=== PATIENT | male | born 1970 | race Caucasian/White ===

== ENCOUNTER 2018-07-09 13:21 | Emergency (ER) | payer SELFPAY ==
[2018-07-09 13:34] VITALS: BP 131/84; PULSE 65; RESP 16; TEMP 36.9; O2SAT 100
--- NOTE | 2018-07-09 13:59 | W.ED.GENAD ---
Discharge Plan Disposition Patient Disposition: HOME Condition: Improving Discharge Details Chief Complaint: Abd Prob Clinical Impression: Early satiety, Chronic epigastric pain, Abdominal bloating Primary Care Provider: None,None ED Provider: Eda Salmeron Home Meds and New Rx's Prescriptions: New famotidine [Pepcid] 20 mg tablet 20 mg PO BID 14 Days Qty: 28 RF: 0 Continued echinacea 380 mg Capsule 1 cap PO DAILY RF: 0 Discharge Instructions Instructions: Peptic Ulcer (ED), Gastritis (ED), Abdominal Pain (ED) Additional Instructions: Drink alcohol in moderation. You were given instructions for gastritis and peptic ulcer disease. You may not have these conditions but based on your symptoms if they continue, it may be beneficial to have an endoscopy for further evaluation of this. Foods that may lead to or exacerbate heartburn or GERD are spicy foods, chocolate, peppermint, and alcohol. Chronic use of NSAIDs such as ibuprofen or aleve can increase your risk of ulcers. Follow up with your primary care doctor in 1 week for re-evaluation and for referral to general surgery or gastroenterology for evaluation for possible endoscopy. Return immediately to the emergency department with any worsening or new concerning symptoms. Referrals: Becky Napier MD [ [facility] STAFF PHYSICIAN] - Discharge Data Discharge Physician: Eda Salmeron Medical Decision Making 47-year-old male who presents with early satiety, intermittent abdominal bloating and epigastric discomfort for the past year, worse with an episode of sweating last night. Vitals within normal limits. Patient appears nontoxic and in no acute distress. Normal ENT exam. Lungs clear to auscultation. Abdomen soft and nontender. Differential diagnosis includes PUD, gastritis, pancreatitis, cholecystitis, GERD. Will place an IV, bolus IV fluids, labs, CT abdomen and pelvis, and a dose of Pepcid and GI cocktail and will reassess. 1510 --labs and imaging reviewed and unremarkable. EKG notes a rate of 59 and sinus with no acute ST findings. Patient states he feels better after meds given here. Patient is requesting to go home. He states he is returning to [place] soon and would rather follow-up with his primary care doctor and if needed for referral to surgery or GI there. He was given a prescription for Pepcid, instructed to watch intake of foods and liquids that may exacerbate heartburn or peptic ulcer disease, and given referral for general surgery here if he changes his mind. He was sent home with copies of his results from today. He was instructed to return here immediately with any worsening or new concerning symptoms. Medical Records Medical records reviewed: Yes I reviewed the patient's medical records. Lab Data Lab results reviewed: Yes I reviewed the patient's lab results. Laboratory Tests Range/Units 07/09/18 07/09/18 14:05 14:05 WBC (4.4-10.8) k/cumm 5.81 RBC (4.50-6.00) m/cumm 4.98 Hgb (13.5-17.5) g/dL 15.2 Hct (40.0-50.0) % 45.2 MCV (80-95) fL 90.8 MCH (27.0-33.0) pg 30.5 MCHC (32.0-36.0) g/dL 33.6 RDW (11.8-14.1) % 13.3 Plt Count (130-400) x1000/uL 278 MPV (8.0-11.0) fL 9.4 Immature Gran % 0.0 Neutrophils % 64.5 Lymphocytes % 28.1 Monocytes % 6.0 Eosinophils % 0.9 Basophils % 0.5 Absolute Neutrophils (1.2-6.7) k/cumm 3.75 Absolute Lymphocytes (1.2-3.4) k/cumm 1.63 Absolute Monocytes (0.11-0.7) k/cumm 0.35 Absolute Eosinophils (0.0-0.7) k/cumm 0.05 Absolute Basophils (0.0-0.2) k/cumm 0.03 Sodium (136-145) mmol/L 140 Potassium (3.5-5.1) mmol/L 4.7 Chloride (98-107) mmol/L 103 Carbon Dioxide (21.0-32.0) mmol/L 30.4 Anion Gap (3-11) mmol/L 6.6 BUN (7-18) mg/dL 13 Creatinine (0.70-1.30) mg/dL 0.82 Estimated GFR/1.73 m2 (mL/min/1.73m2) >= 60.00 Glucose (70-100) mg/dL 102 H Calcium (8.5-10.1) mg/dL 9.1 Magnesium (1.8-2.4) mg/dL 2.0 Total Bilirubin (0.2-1.0) mg/dL 1.0 AST (15-37) U/L 16 ALT (12-78) U/L 35 Alkaline Phosphatase (46-116) U/L 91 Troponin I (0.00-0.06) ng/mL < 0.02 Total Protein (6.4-8.2) g/dL 7.7 Albumin (3.4-5.0) g/dL 4.1 Lipase (73-393) U/L 157 ECG Data Attestation: I personally reviewed and interpreted this ECG (s) as follows: Interpretation: rate of 59, sinus, no acute ST elevation or depression. QTc 406. QRS 95. HPI General Mode of arrival: ambulatory. Date/Time Provider Initiated Documentation: 07/09/18 13:25. Limitations to Documentation: no limitations. Information obtained by: patient. HPI Narrative: Patient is a 47-year-old male who presents with early abdominal fullness after eating, abdominal bloating, and occasional epigastric pain for the past year. He states he has had to make his food portions smaller due to this fullness. Patient states he had an episode of sweating with nausea and epigastric discomfort last night. Patient states he lives in [place] and is on vacation here until next week but plans to move here soon. Patient states he has intermittent epigastric bloating and discomfort over the past year, but this became worse last night with his episode of sweating. He states he has had intermittent formed and loose brown stools over the past few years. He states he takes Motrin 2-3 times weekly for chronic headaches. He does admit to occasional shortness of breath when he feels like he ate too much and feels full. He denies fever, weight loss, chest pain, vomiting, urinary symptoms. He does state he drinks 1-2 beers and occasionally 4 beers approximately 4-5 times weekly. Patient states he is mainly here because he is concerned that he might have a cancer causing his symptoms. Related Data Home Medications Medication Instructions Recorded Confirmed echinacea 1 cap PO DAILY 07/09/18 07/09/18 famotidine [Pepcid] 20 mg PO BID 14 Days #28 tab 07/09/18 Previous Rx's Medication Instructions Recorded famotidine [Pepcid] 20 mg PO BID 14 Days #28 tab 07/09/18 Allergies Allergy/AdvReac Type Severity Reaction Status Date / Time No Known Allergies Allergy Unverified 07/09/18 13:37 General Stated Complaint: Abd Prob JIM: 3 Review of Systems Review of Systems All systems reviewed & are unremarkable except as noted in HPI and below Constitutional Reports as per HPI, Denies chills, Denies fever(s) and Reports headache(s) Eyes Denies blurry vision ENT Denies dizziness, Reports headache(s), Denies sore throat and Denies throat swelling Cardiovascular Denies chest pain and Denies dyspnea Respiratory Denies cough and Denies dyspnea Gastrointestinal Denies abdominal pain, Denies diarrhea and Denies vomiting Genitourinary Denies hematuria and Denies dysuria Musculoskeletal Denies back pain and Denies numbness Integumentary/Breasts Denies lesions and Denies rash Neurologic Denies dizziness, Reports headache(s), Denies focal weakness and Denies numbness Allergic/Immunologic Denies throat swelling PFSH Medical History Tinnitus (Acute) Surgical History No significant past surgical history (Acute) Social History Smoking and Tabacco status: Never alcohol intake: current alcohol intake frequency: 0-2 drinks per day substance use type: marijuana Exam Const General: cooperative, healthy appearing and no acute distress HENMT Head: normal to inspection Ears: hearing grossly normal bilaterally and external ears normal General nose exam: external nose normal Face and sinus: normal facial exam Mouth: oral mucosae normal Throat: posterior oropharynx normal Eyes General: appearance normal, both eyes and all related structures EOM: EOM intact bilaterally Neck Neck: normal visual inspection and No submandibular swelling Lymphatic: no lymphadenopathy noted Chest Chest: normal inspection of the chest and no tenderness Resp Effort & Inspection: normal respiratory effort and able to speak in complete sentences Auscultation: clear to auscultation bilaterally Cardio Rate: regular rate Rhythm: regular rhythm GI Inspection: normal to inspection Palpation: soft, not firm, not rigid and nontender Auscultation: normal bowel sounds Male General Exam: Yes normal external exam Back/Spine/Pelvis Thoracic/Lumbar Spine: thoracic and lumbar spine normal to inspection Pelvis: no pain with anterior-posterior compression Skin General skin exam: no rashes or lesions noted Neuro General: alert, awake and oriented x3 Cognition: normal cognition Speech: speech normal Motor: muscle tone normal throughout Sensory Exam: no sensory deficits noted Extrem General: normal to inspection, full ROM, normal capillary refill, no calf tenderness bilaterally and no edema Psych Appearance: grossly normal Mental Status: mental status grossly normal Speech and Movement: speech and movement normal Affect: normal affect Course Vital Signs Temperature 98.4 F 07/09/18 13:34 Pulse 65 07/09/18 13:34 Respiratory Rate 16 07/09/18 13:34 Blood Pressure 131/84 07/09/18 13:34 Pulse Oximetry 100 07/09/18 13:34 Temperature 98.4 F 07/09/18 13:34 Temperature Source Temporal Artery Scan 07/09/18 13:34 Pulse 65 07/09/18 13:34 Respiratory Rate 16 07/09/18 13:34 Respiratory Effort Non-Labored 07/09/18 13:34 Blood Pressure 131/84 07/09/18 13:34 Blood Pressure Position Sitting 07/09/18 13:34 Pulse Oximetry 100 07/09/18 13:34 Oxygen Delivery Method Room Air 07/09/18 13:34 Oxygen Flow Rate 0 07/09/18 13:34 Pain Level 2 07/09/18 13:34
[2018-07-09 14:09] LABS: Absolute Basophil Count 0.03 k/cumm (0.0-0.2); Absolute Eosinophil Count 0.05 k/cumm (0.0-0.7); Absolute Lymphocyte Count 1.63 k/cumm (1.2-3.4); Absolute Monocyte Count 0.35 k/cumm (0.11-0.7); Absolute Neutrophil Count 3.75 k/cumm (1.2-6.7); Basophils % 0.5; Eosinophils % 0.9; HCT 45.2 % (40.0-50.0); HGB 15.2 g/dL (13.5-17.5); Lymphocytes % 28.1; Mean Corp. HGB Concentration 33.6 g/dL (32.0-36.0); Mean Corpuscular Hemoglobin 30.5 pg (27.0-33.0); Mean Corpuscular Volume 90.8 fL (80-95); Mean Platelet Volume 9.4 fL (8.0-11.0); Neutrophils % 64.5; Platelet Count 278 x1000/uL (130-400); RBC 4.98 m/cumm (4.50-6.00); RBC Distribution Width 13.3 % (11.8-14.1); White Blood Cell Count 5.81 k/cumm (4.4-10.8)
[2018-07-09] MEDS: FAMOTIDINE 20 MG/50 ML BAG 200 MG IVPB (14:12)
[2018-07-09] MEDS: Normal Saline Flush 10 ML SYR IVP (14:13)
[2018-07-09 14:27] LABS: ALT 35 U/L (12-78); AST 16 U/L (15-37); Albumin 4.1 g/dL (3.4-5.0); Alkaline Phosphatase 91 U/L (46-116); Anion Gap 6.6 mmol/L (3-11); BUN 13 mg/dL (7-18); CO2 30.4 mmol/L (21.0-32.0); CREATININE 0.82 mg/dL (0.70-1.30); Calcium 9.1 mg/dL (8.5-10.1); Chloride 103 mmol/L (98-107); Glucose 102 mg/dL (70-100); Lipase 157 U/L (73-393); Potassium 4.7 mmol/L (3.5-5.1); Sodium 140 mmol/L (136-145); Total Protein 7.7 g/dL (6.4-8.2)
[2018-07-09 14:28] LABS: Troponin I < 0.02 ng/mL (0.00-0.06)
[2018-07-09] MEDS: Omnipaque 350 MG/ML 100 ML BTL IJ (14:57)
--- NOTE | 2018-07-09 15:03 | DI.CT_ITS ---
SYMPTOMS/DIAGNOSIS: EPIGASTRIC ABDOMINAL PAIN, EARLY SATIETY, NAUSEA, ? PANCREATITIS, CHOLECYSTITIS, MASS CT SCAN OF THE ABDOMEN AND PELVIS: CT scan of the abdomen and pelvis was performed following the uneventful administration of intravenous contrast material. No priors for comparison. The lung bases are clear. The liver is normal in size. There are a few tiny hypodensities seen in the liver. They are too small for further characterization. They may represent small cysts or hemangioma. The gallbladder is negative. There is no biliary ductal dilatation. The portal, superior mesenteric and splenic veins are patent. The pancreas, spleen and adrenal glands are unremarkable. The kidneys show normal and symmetric enhancement. There is a tiny hypodensity in the right kidney that is too small for further characterization, but likely reflects a small cyst. No obstruction is identified. The urinary bladder is intact. The reproductive organs are unremarkable. The abdominal aorta is of normal caliber. No significant abdominal or pelvic adenopathy, ascites or pneumoperitoneum is seen. The bowel shows no evidence of obstruction or inflammation. There is a normal appendix present. Degenerative changes are seen in the spine. IMPRESSION: No evidence of an acute abdomen. The findings were discussed with the Emergency Department on the date of the examination.
[2018-07-09 15:24] VITALS: BP 131/84; PULSE 65; RESP 16; TEMP 36.9; O2SAT 100
== END 2018-07-09 16:32 | disposition home or self-care (01) ==
PROVIDERS: Emergency Provider Physician Assistant
DX: R68.81 Early satiety (principal); G89.29 Other chronic pain; R10.13 Epigastric pain; R14.0 Abdominal distension (gaseous)
CPT/HCPCS: 36415; 80053; 83690; 93005; 96365; 99285; 74177; 83735; 84484; 85025; 93010; 99284; J3490

== ENCOUNTER 2019-10-24 01:27 | Outpatient (CLI) | payer MEDICAID, SELFPAY ==
[2019-10-24 08:12] LABS: Hemoglobin A1C 5.5 % (3.8-5.6)
[2019-10-24 09:21] LABS: Anion Gap 6.4 mmol/L (3-11); BUN 16 mg/dL (7-18); CO2 30.6 mmol/L (21.0-32.0); Calcium 9.1 mg/dL (8.5-10.1); Calculated LDL 120 mg/dL (<100); Chloride 103 mmol/L (98-107); Cholesterol 196 mg/dL (<200); Glucose 98 mg/dL (74-106); HDL Cholesterol 58 mg/dL (40-60); Potassium 4.6 mmol/L (3.5-5.1); Sodium 140 mmol/L (136-145); Triglyceride 90 mg/dL (<150)
== END 2019-10-24 01:47 ==
PROVIDERS: PCP Nurse Practitioner Family; Visit Provider Nurse Practitioner Family
DX: E78.5 Hyperlipidemia, unspecified (principal)
CPT/HCPCS: 36415; 80048; 80061; 83036

== ENCOUNTER 2019-11-12 00:39 | Outpatient (CLI) | payer MEDICAID, SELFPAY ==
--- NOTE | 2019-11-12 08:40 | DI.MRI_ITS ---
EXAM: MR LUMBAR SPINE WO CLINICAL HISTORY: assess for worsening herniation,BACK PAIN. TECHNIQUE: Multiplanar multisequence MRI was performed. COMPARISON: No exams were available for comparison FINDINGS: MR examination of lumbosacral spine was performed according to the usual protocol. There is no significant bony signal abnormality the lumbar region. The conus medullaris appears inta ct. There is signal loss in intervertebral discs at L3-4, L4-5, and L5-S1 consistent with disc degenerati on. There is an incompletely visualized probable disc herniation at the T11-T12 level centrally and right paracentral. MR of the lower thoracic region may be obtained for further evaluation if clinically i ndicated. No significant findings at T12-L1, L1-2, or L2-3, with intact discs, and unremarkable appearance of c entral spinal canal and neural foramina. At L3-4, there is a small to moderate-sized central/left paracentral disc herniation. No gross neura l impingement. Unremarkable appearance of the neural foramina and spinal canal. At L4-5, there is normal appearance of the intervertebral disc, neural foramina, and spinal canal. At L5-S1, there is mild bilateral neural foraminal narrowing. No central canal spinal stenosis. The re is a moderate disc bulge without evidence of a focal disc herniation. IMPRESSION: Small to moderate-sized central/left paracentral disc herniation at L3-4, no gross neural impingement . Probable disc herniation at T11-T12, incompletely visualized, lower T-spine MRI may be obtained for f urther evaluation if clinically indicated. DATA REPOSITORY:
== END 2019-11-12 00:59 ==
PROVIDERS: PCP Nurse Practitioner Family; Visit Provider Nurse Practitioner Family
DX: M54.5 Low back pain (principal); M51.27 Other intervertebral disc displacement, lumbosacral region; M54.6 Pain in thoracic spine; M51.24 Other intervertebral disc displacement, thoracic region
CPT/HCPCS: 72148

== ENCOUNTER 2019-12-04 09:11 | Day surgery (SDC) | payer MEDICAID, SELFPAY ==
[2019-12-04 09:34] VITALS: BP 104/66; PULSE 60; RESP 16; TEMP 36.2; O2SAT 99
[2019-12-04] MEDS: Lactated Ringers 1,000 ML 80 ML IV (10:02)
--- NOTE | 2019-12-04 11:29 | W.COLOREPORT ---
Date of service: 12/05/19 Time of Service: 15:06 Colonoscopy Report Date of procedure: 12/04/19 Pre-op diagnosis general: CRC screen Post-op diagnosis procedure note: same Procedure: CE Surgeon: Nettie Escobar Anesthesia proc note operative: MAC Estimated blood loss (mL): 0 Pathology: none sent Complications: None Disposition: same day Prep: Miralax/Dulcolax Retraction Time: 10mins Procedure Description: After informed consent was obtained the patient was taken to the procedure room and placed in a left decubitous position. Monitors were applied and a time out was done. The patients name, date of , procedure, allergies to medications and metal in their body was reviewed. The patient was then sedated. Once sedated and comfortable a rectal exam was done. External exam was normal. Internal exam revealed a normal sphincter tone and no palpable masses. The prostate nl. The scope was then introduced and retrofelexed. No internal hemorrhoids were identified. The scope was then advanced to the cecum w/out difficulty. The TI and appendiceal orifice were identified. The prep was good. The scope was then slowly retracted over 10 minutes back into the rectum. . There are no AVMs or polyps identified. He has minor sigmoid diverticuli?a few small diverticula without any signs of active bleeding or infection. These are confined to the sigmoid colon. The scope was removed and the patient was woken up and taken back to Same day surgery in stable condition. The patient tolerated the procedure well and there were no immediate complications. Follow up: The patient should follow up in 10 years unless they develop changes in bowel habits or other new gastrointestinal complaints.
--- NOTE | 2019-12-04 11:36 | W.PM.DSUDISC ---
Discharge Plan Disposition Patient Disposition: HOME Condition: Good Discharge Details Reason For Visit: colon scope Attending Provider: Nettie Escobar Primary Care Provider: Racquel Madrigal Home Meds and New Rx's Prescriptions: Continued tamsulosin 0.4 mg capsule 0.4 mg PO DAILY Qty: 30 RF: 0 Discontinued polyethylene glycol 3350 17 gram/dose powder 238 g PO ONCE Qty: 238 RF: 0 bisacodyl [Dulcolax (bisacodyl)] 5 mg tablet,delayed release (DR/EC) 5 mg PO ONCE Qty: 4 RF: 0 Discharge Instructions Additional Instructions: Findings: Scattered diverticula. Avoid constipation and straining to go to the bathroom. Follow a high-fiber diet Follow up: Repeat in 10 years time Please call if you develop: fevers >101.5 Nausea or Vomiting Abdominal pain that is not transient DAY SURGERY UNIT POST COLONOSCOPY INSTRUCTIONS 1. Because there will be medication in your system for the next 24 hours, you may feel a little sleepy. Your coordination will be affected. Therefore: a. Do not drive or operate dangerous equipment for 24 hours. b. Do not drink alcohol beverages for 24 hours (not even beer). c. Plan to go home and rest for the day. 2. Generally there are no restrictions on your activity after a day or so has gone by, but you may feel a bit fatigued for a few days. 3 After you arrive home you may have a light meal and return to a normal diet as you can tolerate it without feeling sick to your stomach. 4. After surgery, you may feel pain or discomfort. This should be only transient, but if it persists please contact your doctor. 5. If there are any questions regarding the findings of your procedure, please feel free to contact your doctor. 6. If you are unable to contact your doctor with a problem, contact the hospital at [phone]. 7. Continue all your regular medications unless directed otherwise. I understand the above instructions and have no questions. Signature of Patient or Responsible Adult Escort Date/Time Name of Responsible Adult Escort Signature of Nurse Date/Time High Fiber Diet What is Dietary Fiber? All fiber comes from plants, bushes, renée or trees. Of course, the ones that we eat provide us with fruits, vegetables and grains. There are many different types of fiber but the three that are most important to the health of the body are: Insoluble Fiber This fiber does not dissolve in water, nor is it fermented by the bacteria residing in the colon. Rather, it retains water and in so doing, helps to promote a larger, bulkier and more regular bowel activity. This, in turn, may be important in preventing disorder such as diverticulosis and hemorrhoids, and in sweeping out certain toxins and cancer causing carcinogens. Sources of insoluble fiber are: ? whole grain wheat and other whole grains ? corn bran, including popcorn, unflavored and unsweetened ? nuts and seeds ? potatoes and the skins from most fruits from trees such as apples, bananas and avocados ? many green vegetables such as green beans, zucchini, celery and cauliflower ? some fruit plants such as tomatoes and kiwi Soluble Fiber These fibers are fermented or used by the colon bacteria as a food source or nourishment. When these good bacteria grow and thrive, many health benefits occur in both the colon and the body. Soluble fiber is present in some degree in most edible plant foods, but the ones with the most soluble fiber include: ? legumes such as peas and most beans, including soybeans ? oats, rye and barley ? many fruits such as berries, plums, apples bananas and pears ? certain vegetables such as broccoli and carrots ? most root vegetables ? psyllium husk supplement products Prebiotic Soluble Fiber These are relatively newly discovered soluble plant fibers. The technical name for this fiber is inulin or fructan. When these soluble fibers are fermented by the good colon bacteria, some further significant health benefits have been shown to occur by research in many medical centers. These soluble prebiotic fibers occur in significant amounts in: ? asparagus ? yams ? onions ? garlic ? bananas ? leeks ? agave ? chicory and other root vegetables such as [place] artichokes ? wheat, rye and barley (smaller amounts) Benefits of a High Fiber Diet The health benefits of a high fiber diet, consumed on a regular basis and reaching recommended amounts (below), are now fairly well-defined. There are some additional benefits in the early research stage with the prebiotic soluble fibers. What is now known regarding a high fiber diet include: Bowel Regularity A high fiber diet promotes regularity with a softer, bulkier and regular stool pattern. This decreases the chance of hemorrhoids, diverticulosis and perhaps colon cancer. Cholesterol and Reduced Triglycerides The soluble fibers are the ones that will reduce cholesterol levels when used on a regular basis. Psyllium husk and prebiotic soluble fiber will also reduce cholesterol. They may also reduce the incidence of coronary heart disease. Oats, flax seeds and legumes or beans are the recommended fibers. Colon Polyps and Cancer It is still not certain if a high fiber diet helps prevent colon cancer. Considerable research suggests that this may occur. Certainly it makes sense to increase regularity and so speed the movement of cancer causing carcinogens through the bowel. In addition, reducing a heavy meat diet reduces the bile flow from the liver in a favorable way. This, too, reduces the amount of carcinogens that reach and are manufactured in the colon. Finally, a high fiber diet, including prebiotic soluble fiber, increases the integrity and health of the wall of the colon. The risk of cancer may be reduced. Colon Wall Integrity A high fiber diet changes the bacterial makeup of the colon toward a more favorable balance. For instance, it is known that those people with obesity, diabetes type 2 and inflammatory bowel disease have a predominance of bad bacteria in the colon. This, in turn, may render the bowel wall weak and allow bacteria and, indeed, even toxins to seep through. A high fiber diet with a modest reduction in animal and meat products may return the bacterial makeup to a more positive balance. This, in particular, has been seen when the soluble fiber prebiotics are added to the diet. Blood Sugar Soluble fiber such as in legumes (beans), oats and in prebiotic fibers slows the absorption of blood sugar and so helps regulate the sugar in the blood. Insoluble fiber on a regular basis is associated with reduced risk of type 2 diabetes. Weight Loss High fiber diets are more filling and give a sense of fullness sooner than an animal and meat based diet does. In addition, the soluble prebiotic fibers have been shown to turn off the hunger hormones produced in the wall of the gut and to increase the hormones that give a sense of fullness. Those hormones are made in the wall of the gut. New medical research has shown that the bacterial makeup in the colon in overweight people is abnormal to the extent that they manufacture and absorb almost twice the number of calories through the colon wall as do normals. Prebiotic fibers (below) will help change this hormonal balancein a favorable way. Bacteria and the Function of the Colon The colon finishes the digestive process. Hopefully, the waste products move through in a nice regular manner. Insoluble fibers help this process by retaining water and so producing a bulkier, softer stool, which is easy to pass. The additional role of the colon is to provide a home for an enormous number of micro-organisms, mostly bacteria. Recent research has shown that there are over 1,000 species of bacteria with a total bacterial count ten times the number of cells in the body. These bacteria play a major role in keeping the colon wall itself healthy. In addition, these good bacteria produce a very strong immune system for the body. They significantly increase calcium absorption and bone density. They provide other documented benefits. It is the soluble fibers in the diet that are so effective in stimulating the growth of good colon bacteria. How Much is Enough? The amount of fiber in food is measured in grams. National nutritional authorities recommend the following amounts of dietary fiber daily. Under Age 50 Over Age 50 Men 38 grams 30 grams Women 25 grams 21 grams For a week or so, it is best to tally the amount of fiber you are consuming. Boxed and packaged foods will have the amount of fiber per serving on the nutrition label. Which Fibers and Which Foods are Best? As noted, healthy fiber is only found in plants. The three major categories are whole grains, fruits and vegetables. Whole Grains Wheat, oats, barley, wild or brown rice, amaranth, buckwheat, bulgur, corn, millet, quinoa, rye, sorghum, teff and triticals. By far, wheat, oats and wild or brown rice are most common. Always buy whole grain products. White bread, baked goods and rolls almost always are made from wheat flour. Wheat flour is white because most of the fiber, vitamins and other nutrients have been removed. Try not buy enriched grains. What this means is that simple white flour has had vitamins added to it by the admin prog coord. The word, enriched, implies a good and healthy product. On the contrary, enriched means that most of the fiber has been removed and a few vitamins added. Fruits Fruits come from trees such as apple and pear or from bushes or renée. You should eat a wide variety of fruits, preferably with every meal. In many cases, the skin of a fruit such as apple will contain much of the insoluble fiber while the pulp contains most of the soluble fiber. To the extent possible, buy organic fruits as these will have little or no pesticides. Always wash fruit. Vegetables Eat a wide variety of vegetables. They should be a mainstay of lunch and dinners. Frozen vegetables retain as much nutrition and fiber as fresh vegetables. As with fruit, try to buy organic to reduce any residual pesticide ingestion. Wash fresh vegetables thoroughly. Cruciferous vegetables such as broccoli, [place] sprouts and cauliflower contain certain chemicals such as sulforaphane. This substance has very strong anti-cancer properties and should be eaten frequently. Legumes, Beans, Peas and Soybeans These vegetables have plenty of soluble fiber and should be part of a varied vegetable intake. Beans, in particular, contain a certain type of fiber that may lead to harmless gas or bloating. Nuts and Seeds These are rich sources of fiber and are a good substitute for sweets such as candies and baked sweet goods. While nuts and seeds are rich in fiber, they also contain vegetable fat and so can and do add calories. Read the Labels As noted, fresh and frozen foods are usually better. They have good nutrition and few, if any, chemicals added to them. When buying packaged foods and, in particular grains, look for three things: ? The first word on the label should be whole, such as whole wheat or whole grain. ? Check out the calories and the amount of fiber in a serving. ? How many and what other additives or chemicals are added. Fewer is always better. Do you know what each additive does? Some are added not for the benefit of the cow buyer but rather for manufacturers. These could and do include sugar, artificial flavor, chemicals to prevent oxidation and spoilage, emulsifiers to blend the product. You have to be a store detective. Fiber Facts, Nuggets and Pearls ? For breakfast you can easily get the day started well by using a high fiber, whole grain cereal. Check the labels. Add fruit such as blueberries and bananas. If you are an egg eater, use whole wheat or grain toast. Adding wheat germ gives you a good fiber kick. ? Always use whole grain or wheat with rolls and sandwiches. Does your fast food store not have them? Perhaps you look elsewhere. Eating an occasional black cunningham or veggie burger provides variety. ? Snacks should consist of fruit and/or nuts. While nuts are loaded with fiber, they are an energy rich food, meaning they have a lot of calories in a small packet. ? Fruit juices should contain pulp. Clear juices such as clear orange, pear or apple juice contain little fiber and have a lot of fructose. Prune juice is usually high in fiber. ? Homemade soups ? adding fresh or frozen vegetables to a chicken or vegetable stock is a good way to start homemade soup. ? Salads ? adding cooked and then chilled vegetables provide great flavoring to almost any salad. Remember, a ferrer salad has lots of cooked corn in it. Small slices of apples or oranges and nuts such as chopped walnuts or sliced almonds always adds taste, variety and fiber to almost any salad. ? Fruit ? Try to eat fruit of some type with almost every meal. ? Rethink how you place the various foods on your dinner plate. Reducing the portions of the meat or animal food portion to the side with equal or more portions of vegetables, legumes and fruits portion always allows for more fiber. There was never anything magic about making the meat or animal food portion the main part of the dinner plate. Eating from smaller plates can, over time, trick your mind and residential habit of using a dinner plate. Again, there is nothing magic in an 11, 12, or 13 inch dinner plate. Fiber Supplements There are a variety of fiber supplements available on the food or pharmacy shelves. Psyllium This soluble plant fiber has been used in [place] for over 2,000 years. It is a soluble fiber with mucilage in it. This acts to retain a lot of water and also is fermented by colon bacteria. When 7 grams a day are used, it does lower cholesterol. Metamucil in various forms is psyllium. Methyl Cellulose All the cellulose products come from finely ground wood chips which are then treated in a variety of ways such as boiling in acids. Methyl cellulose is an insoluble fiber which does dissolve in water. It is also an emulsifier, meaning it blends oils and water. Citrucel is methyl cellulose (MC). MC may not be appropriate for Crohn?s disease or ulcerative colitis as several medical studies have shown that certain emulsifiers dissolve the mucous lining of the colon in animals prone to Crohn?s disease. This then allows bacteria to invade the underlying tissue. Inulin Inulin is a soluble prebiotic fiber found in many foods and which are fermented mostly in the left side of the colon. It is available in a supplement as generic inulin and in Fiber Choice. Oligofructose FOS These are also prebiotic fibers. They are fermented very quickly in the right side of the colon. Prebiotin This product is a combination of oligofructose, which feeds the bacteria in the right side of the colon and inulin, which does the same in the left side of the colon. There seems to be a benefit for this particular formula based on medical research. Prebiotic Soluble Fiber These may be the healthiest of all the soluble fibers. They grow in many plants and have had a great deal of research done on them in the last 10-15 years. These fibers are found in asparagus, yams and other root vegetables such as chicory, garlic, onion, leeks and in smaller amounts in wheat. This research has shown the following: ? Increase in good and decrease in bad colon bacteria ? Increase calcium absorption and enhanced bone mass ? Enhanced immune system ? Appetite and weight control by changing the hormone appetite signals to the brain ? May decrease colon cancer incidence ? Reduce or correct a leaky colon Eating a wide variety of plant food up to the recommended amount will likely give you enough prebiotic fiber. Supplements such as Prebiotin can be added to the diet. Short Chain Fatty Acids (SCFA) Some rather remarkable research findings have shown that one of the benefits of ingesting a lot of soluble fiber, in particular the prebiotic ones, results in larger amounts of SCFAs in the colon. These SCFAs are made by the good bacteria in the colon such as Bifidobacter and Lactobacillus. These small molecules have been shown to do the following: ? Enhance the health and integrity of the colon wall ? Provide nourishment for the cells that actually line the colon ? Increases the acidity of the colon which is a very real health benefit ? Stabilize blood sugar for diabetics ? Reduce blood cholesterol and triglyceride ? Significantly enhance immunity ? May be a benefit for Crohn?s disease and ulcerative colitis patients Fiber and Gas Everyone has intestinal gas and that is a good thing. It means that bacteria, hopefully the good ones, are thriving. The normal amount of flatus passed each day depends on sex and what is eaten. The normal number of flatus is 10-20 times a day. When the bacteria that make intestinal gases are growing, it also means that other good bacteria are using the same fibers to grow and produce multiple health benefits, including the production of healthy short-chain fatty acids. These substances are produced quietly in the colon and produce many health-related outcomes. Soluble fiber should always be used in a gradual manner. If too much is consumed at any one time, then excess, but harmless, intestinal gas can occur. People with irritable bowel syndrome are particularly prone to bloating and mild cramping. In this instance, soluble fiber in the diet or supplement should be used in small doses and increased gradually. Finally, prebiotic fibers tend to cause the production of short-chain fatty acids which acidify the colon. This, in turn, reduces or stops the growth of bacteria that make the smelly hydrogen sulfide gases that produce noxious flatus. People who consume many vegetables with prebiotics or take a prebiotic fiber supplement often have non-odoriferous flatus. Fiber and Irritable Bowel Syndrome Irritable bowel syndrome (IBS) is one of the most common disorders of the lower digestive tract. The symptoms of IBS can be quite varied. They can be a mix of several symptoms such as constipation, diarrhea, crampy abdominal discomfort, bloating and gas. An attack of IBS can be triggered by emotional tension and anxiety, poor dietary habits and certain medications. It is now known that infections in the intestine can lead to long-term IBS symptoms. Increased amounts of fiber in the diet can help relieve the symptoms of irritable bowel syndrome by producing soft, bulky stools. This helps to normalize the time it takes for the stool to pass through the colon. Recent medical research with newer techniques has shown some surprising and dramatic findings for IBS patients. Specifically, there is a very significant and abnormal shift of bacteria from those that provide health benefits to those bad bacteria that we really do not want in the gut. The technical name for this bad group of bacteria is called Firmicutes. Along with this abnormal bacterial collection, there is a smoldering low-grade inflammation in the gut wall that may contribute to symptoms. The goal for IBS patients should be to gradually increase the soluble dietary fibers in the diet so as to promote the growth of good bacteria and so suppress the bad ones along with the associated inflammation. IBS patients need to be careful of the amount of soluble fiber they consume. The reason for this is that, while the good colon bacteria thrive on these fibers and produce health benefits, other gas-forming bacteria may generate excessive but harmless gas and subsequent bloating. Thus, soluble plant fibers or a dietary prebiotic supplement should be taken in small initial doses and then gradually increased to tolerance. Fiber and Colon Polyps/Cancer Colon cancer is a major health problem. This disease is most common in Western cultures. It is not seen very often in rural cultures where the diet is mostly plant based. Usually, colon cancer starts out as a colon polyp, a benign mushroom-shaped growth. In time it grows, and in some people it becomes cancerous. Colon cancer is usually always curable if polyps are removed when found or if surgery is performed at an early stage. It is now known that people can inherit the risk of developing colon cancer, but diet is important, too. As noted, there is a very low rate of colon cancer in residents of countries where grains are unprocessed and retain their fiber. It seems that in the [place] world, cancer-containing agents (carcinogens) remain in contact with the colon wall for a longer time and in higher concentrations. So, a large bulky stool may act to dilute these carcinogens by moving them through the bowel more quickly. Less carcinogenic exposure to the colon may mean fewer colon polyps and less cancer. A very current review of the entire world?s literature on the effect of fiber on colon polyps and cancer prevention has shown rather clearly that for every 10 grams of fiber added to the diet, there is a 10% reduction in incidence of colon cancer. So the recommended 30 gram fiber diet would result in a 30% less chance of getting these tumors. There are also substances produced in the colon by the good bacteria that seem to retard certain pre-cancer factors from developing. They are called short-chain fatty acids (SCFA). See above for description of SCFAs. A high fiber diet increases these substances. So, the combination of dietary fiber and the production of short-chain fatty acids have a clear health benefit. Fiber and Diverticulosis Prolonged, vigorous contraction of the colon over a long period of time may result in diverticulosis. This increased pressure causes small and, eventually, larger ballooning pockets to form. These pockets by themselves cause no problem. However, sometimes they become infected (diverticulitis) or even break open (perforate) causing infection or inflammation within the abdomen (peritonitis). A high fiber diet increases the bulk in the stool and thereby reduces the pressure within the colon. By so doing, the formation of pockets may be reduced or possibly even stopped. In the past, many physicians were fearful that seeds as in tomatoes, nuts or berries were harmful and could get inside these pockets and rattle around, causing damage. We now know that this has never been the case and that these foods contain lots of fiber and are actually beneficial for diverticulosis patients. Certain bulking agents such as psyllium are traditional types of bulk producing supplements. Psyllium is a soluble fiber. Combining it with insoluble fiber as in wheat bran or corn bran (no gluten) can enhance this bulking effect even more. A product containing a prebiotic, psyllium and wheat bran is probably a very good combination for bowel regularity. Prebiotin Regularity/Diverticulosis is one such product. Inflammatory Bowel Disease (IBD) IBD means Crohn?s Disease (CD) or Ulcerative Colitis (UC). CD is an inflammation of the lower small bowel and/or the colon. Bacteria actually invade and cause inflammation in the entire wall of the intestine. UC, on the other hand, is an inflammation just of the lining of the colon. It usually starts in the rectum and left colon and may spread to the entire colon from there. It is now known that in both CD and UC that the bacterial make up is abnormal. This means that there are significantly more of the bad bacteria present than the good ones. These abnormal bacteria are called Firmicutes. Fiber and Crohn?s Disease There is now some information in the medical literature on what type of diet may be harmful and what may help Crohn?s Disease. A reduction in red meat is likely helpful. So is reducing the fat in the diet, including vegetable oils. More importantly, people who had low fiber ingestion in the diet had a greater chance of getting CD. So, a gradual increase in the amount of fiber is likely helpful in hopefully preventing CD. This should always be done in conjunction with the physician. It should be done gradually and should include soluble fibers which fertilize the best colon bacteria. The good bacteria grow and push out the bad ones. These good bacteria provide short chain fatty acids, which can help heal the bowel wall. Prebiotics such as Prebiotin are available. Fiber and Ulcerative Colitis We still do not have strong evidence in the medical literature on what is the best diet for UC. Eating plenty of soluble fiber, including prebiotic fibers will nourish the best colon bacteria. It is hoped that this will result in a decrease in the bad or Firmicutes bacteria. It is well-known that when the good bacteria proliferate that they produce lots of acid substances called short chain fatty acids (SCFA). The SCFAs actually nourish the cells of the colon wall, the very ones that become inflamed in UC. In addition, when the colon contents become acid, the smelly sulfide gases are not produced and the flatus becomes less noxious and may even have no smell at all. This may have a beneficial effect on the inflammation. Prebiotics such as Prebiotin are the best type of soluble fiber. A Taking a Fiber Supplement Dietary fiber is a plant-based nutrient that's necessary for the healthy functioning of your digestive system. In addition to helping your bowels stay regular, it's also useful for maintaining optimum cholesterol and blood sugar levels as well as a healthy weight. Although it's technically a carbohydrate, it's not the kind that can be broken down into digestible sugars by the body. Instead, fiber travels through your digestive system while bulking and softening your stool?making it easier to pass. It also helps absorb excess blood sugars and cholesterols. The [place] [employer] recommends 30 grams (g) of fiber a day for men, and 25g a day for women. Fiber is found in fruits, vegetables, legumes, and whole grains, and is an important part of the diet. But because many people find it difficult to eat the recommended quantity of 25 to 38 g per day, fiber supplementation can be extremely helpful to ease the symptoms of a variety of digestive discomforts like diarrhea and constipation. Today, many fiber supplements are found on the market containing one of three active ingredients: psyllium, methylcellulose, and polycarbophil Health Benefits If you have diarrhea, supplementing with fiber can bulk up the stool and reduce frequent urges to evacuate the bowel. If you have constipation, fiber supplements can soften your stool and speed up its movement through the colon. To understand how fiber helps relieve symptoms of both diarrhea and constipation, it's important to differentiate between soluble fiber and insoluble fiber. Soluble fiber forms a gel in your colon by absorbing water and retaining it in your stool, which makes bowel movements softer and easier to pass. Insoluble fiber bulks stool up, which also helps it move through your intestines more easily. Thus, fiber can also help you avoid hemorrhoids and anal fissures that can develop when straining to pass a bowel movement. Additionally, supplementing with fiber can be part of a treatment plan for conditions such as irritable bowel syndrome (IBS), various types of inflammatory bowel disease (IBD) like Crohn's disease and ulcerative colitis, as well as diverticulosis. Fiber increases satiety, or fullness, and is thus helpful for those looking to lose weight or maintain a healthy weight. Sufficient fiber intake has also been shown to decrease the risk of certain cancers, heart disease, and diabetes. There is also evidence that enough fiber, when combined with a diet rich in Vitamin A, has a protective effect against food allergies. Possible Side Effects The potential side effects of fiber supplementation include: ? Gas and gas pain ? Abdominal bloating ? Lowered blood sugar ? Diarrhea or constipation (if taken in excess) ? Weight loss ? Lessened effectiveness of medications and vitamins (if taken at the same time as fiber) Because of the way fiber supplements bulk up in the intestinal tract and absorb surrounding materials, they can interfere with the body's ability to assimilate medications, vitamins, and nutrients. For that reason, it's important to consume fiber supplements at least one hour after, or two hours before, taking medications and important vitamins. Dosage and Preparation Fiber supplements often come in the form of powders meant to be mixed with water or another liquid. They also are available in capsule form, or as additives to foods like crackers, cookies, cereals, and bars. Dosage will vary based on the product and your desired effects. If you are healthy, it's generally recommended to start with a low dose of fiber and build up until you've reached optimum total daily fiber intake?roughly 25g for women and 38g for men?which should also include your dietary sources of fiber What to Look For When shopping for fiber, look closely at the ingredients to discover which form of fiber is used in each commercial brand. Also, if you're avoiding added sugar, salt, flavorings, or dyes, check the label for these common additives. If you're just starting with a fiber supplement, use a low dose and drink plenty of water when you take the supplement and throughout the day. If you are not used to eating a high fiber diet/taking a supplement, start with about half of the recommended dose. Always remember to take fiber with 8oz of water. Continue at this dose for about 2-3 weeks, and then slowly increase up to the full dose daily. Fiber is a natural product- you can increase the dose to 2-4 times a day as needed to have a formed BM without straining. Increase the dose slowly until you reach either the desired total intake or a specific effect. Psyllium Psyllium is made from the seeds of a plant in the Plantago genus and contains about 70% soluble fiber and 30% insoluble fiber. It helps the stool absorb water and bulks it up, making it easier to pass. It also breaks down in the gut (a process called fermentation) and becomes a food source for the good bacteria that reside there. Psyllium is used for treating constipation, irritable bowel syndrome (IBS), and diverticulosis. In addition, psyllium may lower cholesterol levels and provide some protection from heart disease. On the downside, psyllium may cause intestinal gas and contains a small number of calories (roughly 20 calories per tablespoon). Psyllium is sold under the brand names Metamucil, Fiberall, Hydrocil, Konsyl, Perdiem, and Serutan. Methylcellulose Methylcellulose is a non-allergenic and non-fermentable fiber created from the cell herbert of plants. Instead of being absorbed by the intestinal tract, methylcellulose pulls in water to create a softer stool. Methylcellulose is often used to treat constipation, diverticulosis, IBS, and some causes of diarrhea. Because it does not ferment, it is less likely than psyllium to cause intestinal gas; however, methylcellulose does not feed healthy gut bacteria the way psyllium does. It can be used marine oil terminal superintendent but it should be noted that, because it can interfere with absorption, methylcellulose should be taken apart from any prescribed medications. Methylcellulose is sold under the brand name Citrucel. Polycarbophil Similar to methylcellulose, polycarbophil absorbs water in the intestinal tract and creates a bulkier and softer stool. Because it does not ferment and is not absorbed by the body, polycarbophil is less likely to cause bloating and can, therefore, be comfortably used marine oil terminal superintendent. Polycarbophil may be used to treat constipation, IBS, and diverticulosis, but is not appropriate for people who have difficulty swallowing. Like methylcellulose, it should be taken about two hours apart from medications. Polycarbophil is sold under the brand names Fibercon, Fiber-Lax, Equalactin, and Mitrolan. Other Questions What are the best dietary sources of fiber? Whether or not you choose to supplement with fiber, it's still important to include a variety of high-fiber foods in your diet, such as: ? Fresh fruit (pears, apples, strawberries, bananas) ? Fresh vegetables (broccoli, Brussel sprouts, beets, and carrots) ? Legumes (lentils, split peas, kidney beans, chickpeas, black beans, castillo beans) ? Whole Grains (quinoa, oats, brown rice, millet, barley) ? Other food sources of fiber (popcorn, sweet potatoes, and carrie) What time of day is best? Different manufacturers may have varying recommendations on when and how frequently to take fiber supplements. You may want to divide your daily dose into two or three portions to reduce bloating and gas that could occur when taking a large dose all at once. To avoid malabsorption, it's important to take medications or vitamins either one hour before, or two hours after, taking fiber supplements. If using a powdered form of fiber, be sure to dissolve it well. No matter what kind of fiber supplement you are using, be sure to drink plenty of water, at least 8ox, unless you are on fluid restrictions. Activity:: No lifting over 20 pounds or strenuous activity x24 hours Diet:: small light meals x24 hours Discharge Orders Discharge Orders: Discharge Order (Routine); Ordered 12/04/19 Ordered By: Nettie Escobar
[2019-12-04 11:37] VITALS: BP 84/52; PULSE 55; RESP 16; TEMP 36.4; O2SAT 98
== END 2019-12-04 12:31 | disposition home or self-care (01) ==
PROVIDERS: PCP Nurse Practitioner Family; Visit Provider Surgery
PROC: 0DJD8ZZ Inspection of Lower Intestinal Tract, Via Natural or Artificial Opening Endoscopic (ICD-10-PCS; CPT 45378; principal; 2019-12-04 10:00)
DX: Z12.11 Encounter for screening for malignant neoplasm of colon (principal); K57.30 Diverticulosis of large intestine without perforation or abscess without bleeding
CPT/HCPCS: 45378; J2001

== ENCOUNTER 2020-05-06 13:17 | Emergency (ER) | payer MEDICAID, SELFPAY ==
--- NOTE | 2020-05-06 13:15 | DI.RAD_ITS ---
EXAM: XR HAND RT COMPLETE CLINICAL HISTORY: Fall, Swelling, 5th, 4th, 3rd fingers. TECHNIQUE: 2D digital imaging was performed. COMPARISON: No exams were available for comparison FINDINGS: No evidence of fracture or dislocation. No osseous lesions nor erosions. No radiopaque foreign body seen. IMPRESSION: No fracture evident. DATA REPOSITORY: RADIATION DOSE DELIVERED:
[2020-05-06 13:25] VITALS: BP 129/78; PULSE 65; RESP 20; TEMP 36.4; O2SAT 98
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
== END 2020-05-06 14:19 | disposition home or self-care (01) ==
PROVIDERS: Emergency Provider Registered Nurse Emergency; PCP Nurse Practitioner Family
DX: S63.8X1A Sprain of other part of right wrist and hand, initial encounter (principal); W01.198A Fall on same level from slipping, tripping and stumbling with subsequent striking against other object, initial encounter
CPT/HCPCS: 99283; 73130

== ENCOUNTER 2020-08-09 03:59 | Outpatient (CLI) | payer MEDICAID, SELFPAY ==
[2020-08-09 12:30] LABS: Abs Immature Grans 0.01 10^3/uL (0.0-0.06); Absolute Basophil Count 0.03 10^3/uL (0.0-0.2); Absolute Monocyte Count 0.35 10^3/uL (0.1-0.8); Basophils % 0.6; HCT 45.4 % (40.0-50.0); HGB 15.2 g/dL (13.5-17.5); Immature Grans % 0.2; Lymphocytes % 35.4; MCH 30.7 pg (27.0-33.0); MCHC 33.5 % (32.0-36.0); MCV 91.7 fL (80-95); MPV 9.7 fL (8.0-11.0); Monocytes % 6.9; Neutrophils % 54.9; Nucleated RBC 0 %; Platelet Count 329 10^3/uL (130-400); RBC 4.95 10^6/uL (4.36-5.78); RDW 12.8 % (11.8-14.1); RDW-SD 43.2 fL; WBC 5.09 10^3/uL (4.4-10.8)
[2020-08-09 12:44] LABS: Hemoglobin A1C 5.6 % (<5.7)
[2020-08-09 13:28] LABS: FREE T4 0.81 ng/dL (0.76-1.46)
[2020-08-09 13:40] LABS: Calculated LDL 124 mg/dL (<100); Cholesterol 204 mg/dL (<200); HDL Cholesterol 65 mg/dL (40-60); Triglyceride 76 mg/dL (<150)
[2020-08-10 10:51] LABS: Lyme Ab w Rflx to Lyme Confirm Negative (Negative)
[2020-08-11 20:15] LABS: Anaplasma phagocytophilum Negative (Negative); B. miyamotoi PCR Negative (Negative); Babesia divergens/MO-1 Negative (Negative); Babesia duncani Negative (Negative); Babesia microti Negative (Negative); Ehrlichia chaffeensis Negative (Negative); Ehrlichia ewingii/canis Negative (Negative); Ehrlichia muris eauclairensis Negative (Negative)
[2020-08-12 16:56] LABS: Testosterone, Free 11.7 ng/dL (4.06-15.6); Testosterone, Total 404 ng/dL (240-950)
== END 2020-08-09 04:00 | disposition home or self-care (01) ==
LOC: LOS 03:59
PROVIDERS: PCP Nurse Practitioner Family; Visit Provider Nurse Practitioner Family
DX: E78.5 Hyperlipidemia, unspecified (principal); R53.83 Other fatigue; R39.12 Poor urinary stream
CPT/HCPCS: 36415; 80061; 84402; 84403; 87798; 83036; 84439; 84443; 85025; 86618

== ENCOUNTER 2020-12-24 02:37 | Outpatient (CLI) | payer MEDICAID, SELFPAY ==
[2020-12-24 22:28] LABS: PSA, Screening 0.8 ng/mL (0.0-3.5)
== END 2020-12-24 02:38 | disposition home or self-care (01) ==
LOC: LBO 02:37
PROVIDERS: PCP Nurse Practitioner Family; Visit Provider Nurse Practitioner Gerontology
DX: N40.1 Benign prostatic hyperplasia with lower urinary tract symptoms (principal); Z12.5 Encounter for screening for malignant neoplasm of prostate
CPT/HCPCS: 84153

== ENCOUNTER 2021-01-04 10:19 | Outpatient (CLI) | payer MEDICAID, SELFPAY ==
--- NOTE | 2021-01-04 10:00 | DI.RAD_ITS ---
Exam(s) XR KNEE RT 3V AP,LAT,BERTA EXAM: XR KNEE RT 3V AP,LAT,BERTA CLINICAL HISTORY: right knee pain. TECHNIQUE: 2D digital imaging was performed. COMPARISON: No exams were available for comparison FINDINGS: BONES: No acute fracture is present. No bony destructive lesion is seen. JOINTS: The knee is normally aligned. No joint effusion is seen. The joint spaces are well maintain ed. There is minimal spurring at the articular aspect of the patella. SOFT TISSUE: Normal. IMPRESSION: Minimal degenerative changes. DATA REPOSITORY: RADIATION DOSE DELIVERED:
== END 2021-01-04 10:20 | disposition home or self-care (01) ==
LOC: DIORS 10:19
PROVIDERS: PCP Nurse Practitioner Family; Referring Provider Nurse Practitioner Family; Visit Provider Student in an Organized Health Care Education/Training Program
DX: M25.561 Pain in right knee (principal)
CPT/HCPCS: 73562

== ENCOUNTER 2021-06-21 16:34 | Outpatient (REF) | payer MEDICAID, SELFPAY ==
[2021-06-21 17:52] LABS: BUN 20 mg/dL (7-18); CREATININE 0.8 mg/dL (0.70-1.30)
== END 2021-06-21 16:35 | disposition home or self-care (01) ==
LOC: LBN 16:34
PROVIDERS: PCP Nurse Practitioner Family; Visit Provider Nurse Practitioner Gerontology
DX: N40.1 Benign prostatic hyperplasia with lower urinary tract symptoms (principal); N30.10 Interstitial cystitis (chronic) without hematuria; M54.59 Other low back pain
CPT/HCPCS: 84520; 82565

== ENCOUNTER → 2022-03-17 00:40 | Outpatient (CLI) | payer MEDICAID, SELFPAY ==
--- NOTE | 2022-03-17 07:30 | DI.RAD_ITS ---
Exam(s) XR ELBOW RT COMPLETE EXAM: XR ELBOW RT COMPLETE CLINICAL HISTORY: right elbow pain,m25.521. TECHNIQUE: 2D digital imaging was performed. COMPARISON: No exams were available for comparison FINDINGS: 3 views No evidence of fracture or joint effusion and no swelling of the olecranon bursa. Radial head and ne ck appear unremarkable. Capitellum unremarkable. Epicondyles unremarkable. Bone density is normal. There are no significant osseous lesions. IMPRESSION: No significant osseous findings in the elbow. DATA REPOSITORY: RADIATION DOSE DELIVERED:
== END ==
PROVIDERS: PCP Nurse Practitioner Family; Visit Provider Emergency Medicine
DX: M25.521 Pain in right elbow (principal)
CPT/HCPCS: 73080

== ENCOUNTER 2022-05-05 13:00 | Outpatient (REF) | payer MEDICAID, SELFPAY ==
[2022-05-05 13:03] LABS: Bilirubin Negative (Negative); Blood Negative (Negative); Clarity Sl Cloudy (Clear); Glucose Negative (Negative); Ketones Negative (Negative); Leukocyte Esterase Negative (Negative); Nitrite Negative (Negative); Specific Gravity 1.025 (1.005-1.025); Urobilinogen 0.2 EU/dL (Up TO 0.2); pH 6.5 (5-8)
[2022-05-07 13:35] LABS: Chlamydia Result Negative (Negative); GC Result Negative (Negative)
== END 2022-05-05 13:01 | disposition home or self-care (01) ==
LOC: LBN 13:00
PROVIDERS: PCP Nurse Practitioner Family; Visit Provider Nurse Practitioner Family
DX: N48.89 Other specified disorders of penis; Z11.3 Encounter for screening for infections with a predominantly sexual mode of transmission
CPT/HCPCS: 87491; 87591; 81003

== ENCOUNTER 2022-06-26 02:45 | Outpatient (CLI) | payer MEDICAID, SELFPAY ==
[2022-06-26 16:19] LABS: Anion Gap 7.5 mmol/L (3-11); BUN 12 mg/dL (7-18); CO2 29.5 mmol/L (21.0-32.0); Calcium 9.4 mg/dL (8.5-10.1); Calculated LDL 140 mg/dL (<100); Chloride 103 mmol/L (98-107); Cholesterol 220 mg/dL (<200); Glucose 87 mg/dL (74-106); HDL Cholesterol 73 mg/dL (40-60); Potassium 4.6 mmol/L (3.5-5.1); Sodium 140 mmol/L (136-145); Triglyceride 38 mg/dL (<150)
== END 2022-06-26 02:46 | disposition home or self-care (01) ==
PROVIDERS: PCP Nurse Practitioner Family; Visit Provider Nurse Practitioner Family
DX: E78.5 Hyperlipidemia, unspecified (principal)
CPT/HCPCS: 36415; 80048; 80061

== ENCOUNTER 2022-11-18 14:48 | Emergency (ER) | payer MEDICAID, SELFPAY ==
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
[2022-11-18 14:52] VITALS: BP 109/71; PULSE 65; RESP 18; TEMP 36.7; O2SAT 98
--- NOTE | 2022-11-18 15:15 | DI.RAD_ITS ---
Exam(s) XR CLAVICLE LT EXAM: XR CLAVICLE LT CLINICAL HISTORY: Left clavicular tenderness and AC joint tenderness TECHNIQUE: 2D digital imaging was performed of the left clavicle. Two images were obtained. AP and axial views were obtained. COMPARISON: No exams were available for comparison FINDINGS: BONES: No acute fracture is present. No bony destructive lesion is seen. JOINTS: No dislocation present. There are mild degenerative changes seen at the acromioclavicular makayla int. SOFT TISSUE: Normal. IMPRESSION: No acute fracture or dislocation. DATA REPOSITORY: RADIATION DOSE DELIVERED:
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
[2022-11-18] MEDS: Ibuprofen 600 MG TAB PO (15:45)
[2022-11-18] MEDS: Acetaminophen 500 MG TAB 1000 MG PO (15:46)
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
--- NOTE | 2022-11-18 16:37 | NUR.NOTE ---
Nursing Note: Referral faxed to PCP for AC joint injury, reassessment/within 1 week.
== END 2022-11-18 16:45 | disposition home or self-care (01) ==
PROVIDERS: Emergency Provider Emergency Medicine; PCP Nurse Practitioner Family
DX: S20.212A Contusion of left front wall of thorax, initial encounter (principal); S43.52XA Sprain of left acromioclavicular joint, initial encounter; V18.0XXA Pedal cycle driver injured in noncollision transport accident in nontraffic accident, initial encounter; Y93.55 Activity, bike riding; Y92.828 Other wilderness area as the place of occurrence of the external cause; M54.50 Low back pain, unspecified; G89.29 Other chronic pain; E78.5 Hyperlipidemia, unspecified
CPT/HCPCS: 99284; 71046; 73000

== ENCOUNTER 2022-11-20 05:08 | Emergency (ER) | payer MEDICAID, SELFPAY ==
[2022-11-20 05:11] VITALS: BP 115/74; PULSE 93; RESP 14; TEMP 36.6; O2SAT 98
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
[2022-11-20 05:37] LABS: Bilirubin Negative (Negative); Blood Trace-intact (Negative); Clarity Clear (Clear); Glucose Negative (Negative); Ketones Negative (Negative); Leukocyte Esterase Negative (Negative); Nitrite Negative (Negative); Specific Gravity 1.025 (1.005-1.025); Urobilinogen 0.2 mg/dL (Up to 0.2); pH 5.5 (5-8)
[2022-11-20 05:38] LABS: Abs Immature Grans 0.02 10^3/uL (0.0-0.06); Absolute Basophil Count 0.06 10^3/uL (0.0-0.2); Absolute Eosinophil Count 0.14 10^3/uL (0.0-0.7); Absolute Lymphocyte Count 2.62 10^3/uL (1.2-3.4); Absolute Monocyte Count 0.51 10^3/uL (0.1-0.8); Absolute Neutrophil Count 3.49 10^3/uL (1.2-6.7); Basophils % 0.9; HCT 42.6 % (40.0-50.0); HGB 14.5 g/dL (13.5-17.5); Immature Grans % 0.3; Lymphocytes % 38.3; MCH 30.8 pg (27.0-33.0); MCV 90 fL (80-95); MPV 8.9 fL (8.0-11.0); Monocytes % 7.5; Platelet Count 307 10^3/uL (130-400); RBC 4.71 10^6/uL (4.36-5.78); RDW 12.7 % (11.8-14.1); WBC 6.84 10^3/uL (4.4-10.8)
[2022-11-20] MEDS: Normal Saline 500 ML IV (05:40)
[2022-11-20 05:48] LABS: Bacteria Rare HPF (Negative); C & S Indicated? No; Crystals Negative HPF (Negative); Epithelial Cells Negative HPF (Negative); Mucus Negative (Negative); RBC 0-2 HPF (0-2); WBC Negative HPF (0-5)
[2022-11-20 05:53] LABS: ALT 27 U/L (16-63); AST 12 U/L (15-37); Albumin 3.7 g/dL (3.4-5.0); Alkaline Phosphatase 85 U/L (46-116); Anion Gap 6.5 mmol/L (3-11); BUN 17 mg/dL (7-18); Bilirubin, Total 0.7 mg/dL (0.2-1.0); CO2 30.5 mmol/L (21.0-32.0); Calcium 8.7 mg/dL (8.5-10.1); Chloride 105 mmol/L (98-107); Glucose 109 mg/dL (74-106); Potassium 4.1 mmol/L (3.5-5.1); Sodium 142 mmol/L (136-145); Total Protein 6.9 g/dL (6.4-8.2)
[2022-11-20] MEDS: Omnipaque 350 MG/ML 100 ML BTL IJ (06:04)
[2022-11-20] MEDS: Normal Saline Flush 10 ML SYR IVP (06:05)
[2022-11-20] MEDS: Normal Saline - Diluent 50 ML VIAL IJ (06:05)
[2022-11-20 06:27] VITALS: BP 124/77; PULSE 52; RESP 14; O2SAT 99
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
[2022-11-20] MEDS: Ketorolac 15 MG/ML VIAL IVP (07:16)
--- NOTE | 2022-11-20 07:22 | NUR.NOTE ---
Nursing Note: Referral faxed to [facility] Urology for nodular bladder/appt at their discretion.
[2022-11-20 07:24] VITALS: BP 124/77; PULSE 55; RESP 14; O2SAT 99
== END 2022-11-20 07:39 | disposition home or self-care (01) ==
PROVIDERS: Emergency Provider Student in an Organized Health Care Education/Training Program; PCP Nurse Practitioner Family
DX: R10.9 Unspecified abdominal pain (principal); M89.9 Disorder of bone, unspecified; D18.09 Hemangioma of other sites; K57.90 Diverticulosis of intestine, part unspecified, without perforation or abscess without bleeding
CPT/HCPCS: 36415; 80053; 96360; 99285; 74177; 81003; 81015; 85025; 99284; J1885; J3490

== ENCOUNTER 2023-04-12 20:30 | Emergency (ER) | payer MEDICAID, SELFPAY ==
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
[2023-04-12 20:32] VITALS: BP 116/63; PULSE 75; RESP 18; TEMP 37.7; O2SAT 99
--- NOTE | 2023-04-12 20:38 | W.ED.GENAD ---
Discharge Plan Disposition Patient Disposition: Home Condition: Stable Discharge Details Clinical Impression: Internal derangement of right knee Primary Care Provider: Racquel Madrigal ED Provider: Boubacar Steven Home Meds and New Rx's Prescriptions: Continued meclizine 25 mg tablet 25 mg PO DAILY PRN (Reason: motion sickness) Qty: 20 0RF Patient Comments: stated does not take Rx Instructions: may repeat in 8 hours if needed for vertigo valacyclovir 1 gram tablet 1,000 mg PO DAILY PRN (Reason: rash) Qty: 30 0RF Patient Comments: stated does not take Rx Instructions: Take 1 daily for 5 days during an outbreak meclizine 25 mg tablet 25 mg PO TID Qty: 10 0RF Discharge Instructions Instructions: Knee Sprain (ED) Additional Instructions: You were seen in the emergency department for your possible ligamentous injury of your right knee or meniscal injury of your right knee. Your x-rays are negative for fracture. Please rest, ice, compress and elevate the knee, use the crutches and toe tap for partial weightbearing on your right leg, please use therapeutic dosing of Tylenol (acetamenophen) & Advil (ibuprofen) in an alternating fashion as follows: Take 1000mg of Tylenol every 6 hours without missing doses- that is 4 times per day. Prison in between the Tylenol dosings, take 400-600mg of Advil also on a 6 hour schedule, that is also 4 times per day. The daily maximum dosing of Tylenol is 4000mg, and the daily maximum dosing of Advil is 2400mg. This is safe to do for weeks. Please note that some common cold medications & prescription pain medications may contain acetamenophen and you need to read OTC drug labels and factor that in to maximum daily dosings. Please call and [facility] orthopedics or your primary care provider for referral tomorrow morning to set up an evaluation for probable MRI. Referrals: [facility] [Provider Group] Racquel Madrigal NP [Primary Care Provider] - Discharge Data Discharge Date/Time-TO BE ENTERED AT DEPARTURE: 04/12/23 21:27 Medical Decision Making This dictation utilizes [id number]-mebp dictation software and may contain unedited grammatical errors. 52 y/o M presents to ED today with a chief complaint of XC ski injury- one leg went one way, the other stayed- felt a pop in his R knee, states a prior ACL tear but sounds like it was partial and non-surgical. Patient is R-foot dominant. Onset and characteristics include onset today, is able to ambulate. Patients' medical history: noncontributory, otherwise healthy. Family and social history: noncontributory. Pertinent exam findings / vital signs include +MacMurray R knee, negative Felipe/anterior drawery, no crepitus, small effusion suprapatellar. Differential / pathologies of concern include ligamentous injury of knee, meniscus tear, tibial plateau fracture. Diagnostic studies of: -XR R Knee - no acute fracture seen. Interventions of: -Hinged knee immobilizer, Crutches, recommend RICE protocol, therapeutic dosing APAP/NSAID, follow w/ orthopaedics. ED Course/Assessment/Plan: 52-year-old male presents with cross-country skiing injury, feels like an old ACL injury and remote past, has Damien positive I did corporate counsel him that he possibly has a meniscus tear and to aggressively ice and elevate the knee while he awaits follow-up with orthopedics, advised him he may need a referral from his primary care for this. I recommended therapeutic dosing Tylenol and ibuprofen as well as partial weightbearing with the crutches of toe tapping as tolerated. Findings not consistent with fracture/NV Compromise. Disposition of Internal Derangement of Right Knee. Patient verbalized understanding of the plan and return to ED criteria and engaged in shared decision making. Medical Records Medical records reviewed: Yes I reviewed the patient's medical records. Imaging Data Radiologic Study: Imaging: X-Ray Radiologist's impression: Exam: XR Right Knee Exam date and time: 04/12/2023 8:53 PM Age: 52 years old Clinical indication: Pain and injury or trauma; Blunt trauma; Right; Injury details: Fall xc skiing, R knee pain TECHNIQUE: Imaging protocol: Radiologic exam of the right knee. Views: 3 views. COMPARISON: CR XR KNEE RT 3V AP,LAT,MOLLY 01/04/2021 10:10 AM FINDINGS: Bones/joints: Joint effusion suspected. No discrete fracture or dislocation Soft tissues: Normal. IMPRESSION: Question joint effusion. No discrete fracture noted Dictated and Authenticated by: Jurgen Chung MD. Ordering:DANIEL Hamlin MD [facility] General Date/Time Provider Initiated Documentation: 04/12/23 20:37. HPI Narrative: 52 year-old male presents to ED today by POV/ambulating with a chief complaint of R knee injury, R-foot dominant, while XC skiing with onset earlier today. Quality described as feels like he tore his ACL, when comparing it to a prior what sounds like grade 2 non-surgical ACL tear in remote history, no radiation to inability to weight-bear, numbness/tingling distally, proximal pain. Severity is described as 6-7/10. Palliating factors include nothing specific attempted. Provoking factors include nothing specific. Events leading up to the incident/Associated Symptoms: Patient states he felt some sort of click or pop during the fall. Patient not anticoagulated. Related Data Home Medications Medication Instructions Recorded Confirmed meclizine 25 mg tablet 25 mg PO DAILY PRN motion sickness 06/24/20 04/12/23 #20 tabs valacyclovir 1 gram tablet 1,000 mg PO DAILY PRN rash #30 tabs 04/27/21 04/12/23 meclizine 25 mg tablet 25 mg PO TID #10 tabs 02/07/23 04/12/23 Previous Rx's Medication Instructions Recorded meclizine 25 mg tablet 25 mg PO DAILY PRN motion sickness 06/24/20 #20 tabs valacyclovir 1 gram tablet 1,000 mg PO DAILY PRN rash #30 tabs 04/27/21 meclizine 25 mg tablet 25 mg PO TID #10 tabs 02/07/23 Allergies Allergy/AdvReac Type Severity Reaction Status Date / Time No Known Allergies Allergy Unverified 04/12/23 20:37 General Stated Complaint: Orthopedic JIM: 4 Review of Systems All systems reviewed & are unremarkable except as noted in HPI and below PFSH All Active Problems (Updated 04/12/23 @ 21:13 by IGOR Green) Internal derangement of right knee (Acute) Right kidney stone (Acute) BERNARDA (obstructive sleep apnea) (Chronic) Hyperlipidemia (Chronic) 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 Maternal Grandmother No problems noted. Paternal Grandfather No problems noted. Paternal Grandmother No problems noted. Social History Smoking/Tobacco Use Status: Never Second Hand Exposure: Yes Smoking risk assessment performed?: Yes Alcohol Intake: current Alcohol Intake frequency: a few times a month Alcohol type: beer and wine Drug use: Current Sobriety Substance use type: marijuana and hallucinogens Caregiver/Support person: No Household members: none Housing: house Communication Needs: Hard of Hearing Do you need help understanding health information?: Rarely Pets and animals: No Sexually active: No Do you think of yourself as: straight/heterosexual Current gender identity: male What is your relationship status?: never How often do you talk on the phone with friends or family?: three or more times per week How often do you get together with friends or relatives?: once per week How often do you attend roman catholic or episcopal services?: decline to answer Do you belong to any clubs or organized social groups?: no Panel score (0-1 are the most socially isolated patients): 1 What type of physical activity do you participate in: none and decline to answer Karina/Tenriism: None Special karina needs: No Seatbelt use: always Helmet use: Yes Helmet use: always Drive intox or ride w/intox waste collection driver: No Do you feel safe at home: Yes Do you feel safe in your relationship?: Yes Exam Narrative Exam Narrative: GENERAL APPEARANCE: Well-nourished, non-toxic, awake and alert, atraumatic, no acute distress. SKIN: Warm, pink, dry, intact, without rashes/lesions/ulcerations. HEAD: Normocephalic, atraumatic, normal hair distribution for gender/age. EYES: Pupils PERRLA, EOMs intact without nystagmus, normal conjunctiva, no exudates on lids/lashes. ENT: Nares patent, no circumoral cyanosis, no facial swelling NECK: Supple, trachea midline, painless cervical ROM. LUNGS/CHEST: Non-labored respirations, normal A/P diameter, symmetrical expansion, no chest wall deformity HEART (CV/PV): No peripheral edema, no JVD. ABDOMEN: Soft, non-distended, no guarding, no tenderness. MSK: Normal ROM, no swelling/deformity to bilateral UEs or LEs, moving all extremities without weakness, no cyanosis, spine midline without tenderness, normal curvature. R LE: Mild joint line tenderness to palpation to the right knee, neurovascularly intact distally, Damien positive, Felipe anterior drawer negative, no significant pain with varus valgus forces applied and no laxity, femur and tibia-fibula stable NEURO: Mental Status AAOx4 - alert to person, place, time, events No facial droop, no forehead involvement. Motor: No focal weakness - strength 5/5 in bilateral UEs and LEs, proximal and distal, symmetric. Sensory: sensation intact to light touch globally. Gait NT. PSYCH: euthymic, cooperative, pleasant, appropriate speech Course 04/12/23 20:37 Crutches .crutches Knee Immobilizer [ED Orthopedic Splint/Devices] .Knee Hinged Brace XR knee RT 3V AP,lat,molly [RAD] Stat Vital Signs Vital signs: Vital Signs Temperature 37.7 C H 04/12/23 20:32 Pulse 75 04/12/23 20:32 Respiratory Rate 18 04/12/23 20:32 Blood Pressure 116/63 04/12/23 20:32 Pulse Oximetry 99 04/12/23 20:32 Temperature 37.7 C H 04/12/23 20:32 Temperature Source Tympanic 04/12/23 20:32 Pulse 75 04/12/23 20:32 Respiratory Rate 18 04/12/23 20:32 Respiratory Effort Normal, Non-Labored 04/12/23 20:37 Blood Pressure 116/63 04/12/23 20:32 Blood Pressure Position Sitting 04/12/23 20:32 Pulse Oximetry 99 04/12/23 20:32 Oxygen Delivery Method Room Air 04/12/23 20:32 Oxygen Flow Rate 0 04/12/23 20:32 Pain Level 4 04/12/23 20:32
--- NOTE | 2023-04-12 21:21 | NUR.NOTE ---
knee immoblizer and crutches applied to PT. PMS intact. Crutch training given to PT. PT tolerated well. Nursing Note:
--- NOTE | 2023-04-12 21:36 | DI.VRAD_ITS ---
PROCEDURE INFORMATION: Exam: XR Right Knee Exam date and time: 04/12/2023 8:53 PM Age: 52 years old Clinical indication: Pain and injury or trauma; Blunt trauma; Right; Injury details: Fall xc skiing, R knee pain TECHNIQUE: Imaging protocol: Radiologic exam of the right knee. Views: 3 views. COMPARISON: CR XR KNEE RT 3V AP,LAT,BERTA 01/04/2021 10:10 AM FINDINGS: Bones/joints: Joint effusion suspected. No discrete fracture or dislocation Soft tissues: Normal. IMPRESSION: Question joint effusion. No discrete fracture noted Dictated and Authenticated by: Jurgen Chung MD. Ordering:DANIEL Hamlin MD
== END 2023-04-12 21:27 | disposition home or self-care (01) ==
PROVIDERS: Emergency Provider Physician Assistant; PCP Nurse Practitioner Family
DX: M23.91 Unspecified internal derangement of right knee; X58.XXXA Exposure to other specified factors, initial encounter; Y93.24 Activity, cross country skiing; Z87.828 Personal history of other (healed) physical injury and trauma; E78.5 Hyperlipidemia, unspecified
CPT/HCPCS: 29530; 73562; 99283

== ENCOUNTER → 2023-04-25 00:47 | Outpatient (CLI) | payer MEDICAID, SELFPAY ==
--- NOTE | 2023-04-25 15:25 | DI.MRI_ITS ---
Exam(s) MR LOWER JOINT RT WO EXAM: MR LOWER JOINT RT WO CLINICAL HISTORY: NEW INJURY,KNOWN ACL TEAR,INTERNAL DERANGEMENT,M23.91,S83.511A TECHNIQUE: Multiplanar multisequence MRI of the knee was performed. COMPARISON: CR,XR XR KNEE RT 3V AP,LAT,BERTA from 04/12/2023 FINDINGS: EFFUSION: There is a large joint effusion. There is synovial thickening. There is no Louis cyst in the popliteal fossa. MARROW:There is bone contusion signal in the lateral tibial plateau. No abnormal intraosseous signal in the femoral condyles, patella, nor within the fibular head and neck. There are no significant os seous lesions. PATELLOFEMORAL COMPARTMENT: The quadriceps tendon is intact. The patellar ligament is intact. There is no significant thinning of the retropatellar cartilage. No evidence of fissure nor signific ant chondral defect. No osteochondral defect at this level.There is no intraosseous signal to sugges t recent patellar dislocation. There are no patellar retinacular tears. CRUCIATE LIGAMENTS: There is some abnormal signal in the superior aspect of the ACL and somewhat abno rmal configuration of the superior aspect of the ACL. These findings are suspicious for partial tear ing of the ACL.The posterior cruciate ligament is intact. MEDIAL COMPARTMENT/MEDIAL MENISCUS: There is complex tear of the posterior horn of the medial meniscu s. There is horizontal and oblique tearing of the posterior horn. Anterior horn appears intact but with mild extrusion. There is no obvious chondromalacia/chondral defects over the medial femoral condyle nor subarticular edema. No osteochondral defects. MEDIAL COLLATERAL LIGAMENT: There is significant tearing of the medial collateral ligament at its att achment site with the outer aspect of the medial femoral condyle. There is an area of full-thickness tearing at this level. There is also overlying soft tissue edema. LATERAL COMPARTMENT/LATERAL MENISCUS: There is no evidence of obvious lateral meniscal tear.There is mild thinning of the articular cartilage over the weight-bearing surface of the lateral femoral condy le but there are no prominent chondral defects nor osteochondral defects nor subarticular edema in th e lateral condyle. ILIOTIBIAL BAND: Intact LATERAL COLLATERAL LIGAMENT COMPLEX: The fibular collateral ligament is intact. The biceps femoris t endon is intact.Popliteus muscle and tendon are intact. IMPRESSION: 1. There is complex tear of the posterior horn of the medial meniscus exhibiting both oblique and hor izontal components. 2. There is a tear of the medial collateral ligament above the joint line level at its attachment wit h the medial femoral condyle outer surface. 3. Partial tear of the anterior cruciate ligament. 4. Prominent joint effusion with some debris and synovial thickening. DATA REPOSITORY:
== END ==
PROVIDERS: PCP Nurse Practitioner Family; Visit Provider Student in an Organized Health Care Education/Training Program
DX: S83.231A Complex tear of medial meniscus, current injury, right knee, initial encounter (principal); X58.XXXA Exposure to other specified factors, initial encounter
CPT/HCPCS: 73721

== ENCOUNTER 2023-12-28 01:48 | Outpatient (CLI) | payer MEDICAID, SELFPAY ==
--- OUTSIDE RECORDS SUMMARY | 2023-12-28 01:56 | XMS_ITS | Encounter Summary ---
[place] [address] Care Team Providers Care [employer] Principal Name Role Phone Racquel Madrigal APRN Primary Care Provider [phone] Reason for Referral * Consultation (Routine) - Authorized Specialty Diagnoses / Procedures Referred By Arnel t Referred To Contact Orthopaedics Diagnoses Complete tear of medial collateral ligament of knee, right, initial encounter Rupture of anterior cruciate ligament of right knee, initial encounter Acute medial meniscal injury of right knee, initial encounter Amol Lawton MD [address] [place] [address] [facility] [address] [place] [id number] Referral ID Status Reason Start Date Expiration Date Visits Requested Visits Authorized [id number] Authorized Consult, Test & Treat PCP Updated and/or Approved 05/09/2023 05/08/2024 6 6 Encounter Details Date Type Department Care Team (Latest Contact Info) Description 05/09/2023 Transcribe Orders eDH Incoming Referrals [phone] Amol Lawton MD [address] [place], [place] [id number] Complete tear of medial collateral ligament of knee, right, initial encounter; Rupture of anterior cruciate ligament of right knee, initial encounter; Acute medial meniscal injury of right knee, initial encounter Social History Tobacco Use Types Packs/Day Years Used Date Smoking Tobacco: Never Assessed Sex and Gender Information Value Date Recorded Sex Assigned at Not on file Gender Identity Not on file Sexual Orientation Not on file documented as of this encounter Plan of Treatment Scheduled Referrals Name Type Priority Associated Diagnoses Order Schedule Referral to Orthopaedics Outpatient Referral Routine Complete tear of medial collateral ligament of knee, right, initial encounter Rupture of anterior cruciate ligament of right knee, initial encounter Acute medial meniscal injury of right knee, initial encounter Ordered: 05/09/2023 documented as of this encounter Visit Diagnoses Diagnosis Complete tear of medial collateral ligament of knee, right, initial encounter Rupture of anterior cruciate ligament of right knee, initial encounter Acute medial meniscal injury of right knee, initial encounter documented in this encounter Care Teams [employer] Principal Relationship Specialty Start Date End Date Racquel Madrigal APRN [address] [place] [address] PCP - General Family Medicine 05/09/23 documented as of this encounter
--- OUTSIDE RECORDS SUMMARY | 2023-12-28 01:56 | XMS_ITS | Encounter Summary ---
Author Organization [facility] [place] [address] Care Team Providers Care Railroad Operating Engineer Name Role Phone Unavailable Primary Care Provider Unavailabl e Encounter Details Date Type Department Care Team (Late st Contact Info) Description 04/25/2023 Ancillary Procedure [place] [address] Kiran Carvajal MD [facility] [place] [place] [address] Social History Tobacco Use Types Packs/Day Years Used Date Smoking Tobacco: Never Assessed Sex and Gender Information Value Date Recorded Sex Assigned at Not on file Gender Identity Not on file Sexual Orientation Not on file documented as of this encounter Plan of Treatment Not on file documented as of this encounter Procedures Procedure Name Priority Date/Time Associated Diagnosis Comments FILM LIBRARY STORAGE ONLY MR KNEE Routine 04/25/2023 12:00 AM EST documented in this encounter Results * Film Library- Storage Only MR Knee (04/25/2023 12:00 AM EST) Narrative FRANK - 05/03/2023 2:21 PM EST This exam is auto-finalizing. It's purpose is for storage only. Kiran Carvajal MD IMG FILM LIBRARY OR DERABLES [place] documented in this encounter Visit Diagnoses Not on filedocumented in this encounter
--- OUTSIDE RECORDS SUMMARY | 2023-12-28 01:56 | XMS_ITS | Encounter Summary ---
Author Organization [facility] Address [address] [facility] [place] [address] Care Team Providers Care Cut In Station Operator Name Role Phone Racquel Madrigal APRN Primary Care Provider Encounter Details Date Type Department Care Team (Late st Contact Info) Description 07/04/2023 Interpretation Only Radiology [address] [facility] [place] [address] Unknown None Social History Tobacco Use Types Packs/Day Years Used Date Smoking Tobacco: Never Smokeless Tobacco: Never Alcohol Use Standard Drinks/Week Comments Yes 3 (1 standard drink = 0.6 oz pur e alcohol) once per week DH IPV Inpatient Questions Answer Date Recorded Does Anyone Try to Keep You From Having Contact with Others or Doing Things Outside Your Home? no 07/04/2023 Feels Threatened by Someone no 09/2023 Feels Unsafe at Home or Work/School no 07/04/2023 Physical Signs of Abuse Present no 07/04/2023 Sex and Gender Information Value Date Recorded Sex Assigned at Not on file Gender Identity Not on file Sexual Orientation Not on file documented as of this encounter Plan of Treatment Not on file documented as of this encounter Procedures Procedure Name Priority Date/Time Associated Diagnosis Comments DH OR ENDOSCOPY Routine 07/04/2023 documented in this encounter Results * DH OR Endoscopy (07/04/2023) Anatomical Region Laterality Modality Other 07/04/2023 Narrative 07/04/2023 12:00 AM EST Photographs - Images Procedure Note Unknown - 07/04/2023 Photographs - Images Unknown EA IMAGES documented in this encounter Visit Diagnoses Not on filedocumented in this encounter Care Teams Cut In Station Operator Relationship Specialty Start Date End Date Racquel Madrigal APRN [address] [place] [address] PCP - General Family Medicine 05/09/23 documented as of this encounter
--- OUTSIDE RECORDS SUMMARY | 2023-12-28 01:56 | XMS_ITS | Encounter Summary ---
Author Organization [facility] [place] [address] Care Team Providers Care Nurse Licensed Practical Name Role Phone Racquel Madrigal APRN Primary Care Provider Reason for Referral * Physical Therapy (Routine) - Authorized Specialty Diagnoses / Procedures Referred By Arnel jacobs Referred To Contact Physical Therapy Diagnoses Rupture of anterior cruciate ligament of right knee, initial encounter Aniket Jasmine MD [facility] [address] Referral ID Status Reason Start Date Expiration Date Visits Requested Visits Authorized [id number] Authorized Evaluate and Treat 12/11/2023 06/08/2024 12 12 Reason for Visit * Reason Comments Follow-up NXR S/P R KNEE AC L/MCL AND MMT REPAIR DOS 07/04/2023 (SMITA) Encounter Details Date Type Department Care Team (Late st Contact Info) Description 12/11/2023 4:00 PM EDT [place] [address] Aniket Jasmine MD [facility] [address] Rupture of anterior cruciate ligament of right knee, initial encounter Social History Tobacco Use Types Packs/Day Years Used Date Smoking Tobacco: Never Smokeless Tobacco: Never Alcohol Use Standard Drinks/Week Comments Yes 3 (1 standard drink = 0.6 oz pur e alcohol) once per week [facility] Inpatient Questions Answer Date Recorded Does Anyone Try to Keep You From Having Contact with Others or Doing Things Outside Your Home? no 07/04/2023 Feels Threatened by Someone no 03/0 09/2023 Feels Unsafe at Home or Work/School no 07/04/2023 Physical Signs of Abuse Present no 07/04/2023 Sex and Gender Information Value Date Recorded Sex Assigned at Not on file Gender Identity Not on file Sexual Orientation Not on file documented as of this encounter Progress Notes * Aniket Jasmine MD - 12/11/2023 4:00 PM EDT Case Date: 07/04/2023 Postoperative diagnosis: ACL/MLC/MMT/LMT tear, Right knee Procedure(s) (LRB): ARTHROSCOPIC ANTERIOR CRUCIATE LIGAMENT REPAIR (WRVU 14.3) (Right) MODIFIER PATELLA TENDON ALLOGRAFT BONE TENDON BONE (N/A) LIGAMENTOUS REPAIR, KNEE, COLLATERAL (WRVU 9.08) (Right) ARTHROSCOPY WITH MENISCECTOMY, LAT.& MEDIAL WITH SHAVING (WRVU 7.39) (Right) 5+ months f/u status post the above surgery. Has had an up-and-down course. [facility] when he was in [place] in September and doing PT and riding his bike regularly his knee actually felt quite good. [facility] diligent with his stretching and other PT exercises. He now notes a clicking in his knee which he is concerned about wonders if his knee is swollen wonders if he is doing as well as he should be. On exam his right knee does have some mild patellar crepitation. There is a click sound/feel past 90 degrees of flexion. His Felipe's is stable. Knee is stable varus valgus full extension. 1+ gapping with a solid endpoint at 30 degrees of flexion. No swelling. No effusion. A/P: 52-year-old male 5+ months status post above surgery. Overall doing well but I think under rehabilitated. Will send him back to PT. Will follow-up with him in June or July for final check. documented in this encounter Plan of Treatment Scheduled Referrals Name Type Priority Associated Diagnoses Orde r Schedule Referral to Physical Therapy Outpatient Referral Routine Rupture of anterior cruciate ligament of right knee, initial encounter Ordered: 12/11/2023 documented as of this encounter Visit Diagnoses Diagnosis Rupture of anterior cruciate ligament of right knee, initial encounter documented in this encounter Care Teams Nurse Licensed Practical Relationship Specialty Start Date End Date Racquel Madrigal APRN [address] [place] [address] PCP - General Family Medicine 05/09/23 documented as of this encounter
--- OUTSIDE RECORDS SUMMARY | 2023-12-28 01:56 | XMS_ITS | Clinical Summary ---
[place] [address] Care Team Providers Care Polymerization Supervisor Name Role Phone Racquel Madrigal APRN Primary Care Provider Allergies No known active allergies Medications Medication Sig Dispensed Refills Start Date End Date Status meclizine (Antivert) 25 mg tablet Take 1 tablet by mouth Three Times Daily for DHE. 02/07/2023 Active Active Problems Problem Noted Date Diagnosed Date Rupture of anterior cruciate ligament of right k nee 06/11/2023 Injury of medial collateral ligament (MCL) of kn ee 06/05/2023 Encounters Date Type Department Care Team Description 12/11/2023 4:00 PM EDT Office [place] [phone] Aniket Jasmine MD Rupture of anterior cruciate ligament of right knee, initial encounter 12/11/2023 Travel from Last 3 Months Social History Tobacco Use Types Packs/Day Years Used Date Smoking Tobacco: Never Smokeless Tobacco: Never Tobacco Cessation:Counseling Given: Not Answered Alcohol Use Standard Drinks/Week Comments Yes 3 (1 standard drink = 0.6 oz pur e alcohol) once per week [facility] Inpatient Questions Answer Date Recorded Does Anyone [...] on file Sexual Orientation Not on file Last Filed Vital Signs Vital Sign Reading Time Taken Comments Blood Pressure 104/70 07/24/2023 12:56 PM EDT Pulse 88 07/24/2023 12:56 PM EDT Temperature 36.2 ??C (97.2 ??F) 07/04/2023 1 2:03 PM EST Respiratory Rate 16 07/04/2023 12:2 5 PM EST Oxygen Saturation 97% 07/04/2023 1:0 0 PM EST Inhaled Oxygen Concentration - - Weight 70.3 kg (155 lb) 07/24/2023 12:5 6 PM EDT from previous encounter, on crutches Height 175.3 cm (5' 9) 07/24/2023 12:5 6 PM EDT Body Mass Index 22.89 07/24/2023 12:56 PM EDT Plan of Treatment Health Maintenance Due Date Last Done Comments CT Colonography 1968 Colonoscopy 1968 Colorectal Cancer Screening 1968 FIT DNA 1968 FIT 1968 Sigmoidoscopy (10 year) with FIT yearly 1968 Sigmoidoscopy 1968 HIV screen 1986 Hepatitis C Screening 1986 Lipid Screening 1986 Hepatitis B vaccine (0-59 yrs) (1) 12/24/1987 Tdap adult 12/24/1987 Tetanus vaccine 12/24/1987 Zoster vaccine (1 of 2) 2018 Covid-19 Vaccine (1 - 2022- season) 2022 Advance Directive 12/24/2023 Influenza (Flu) vaccine (1 o f 1 - Influenza standard series) 12/30/2023 Medical Devices Implanted Type Area Production Line Device Identifier Shelf Expiration Date Model / Serial / Lot Graft Tissue [id number] Patella Regenerative Frozen Flexigraft ([id number]) (Autoreq) - [id number] Implanted:Qty: 1 on 07/04/2023 by Aniket Jasmine MD at [facility] IMPLANTS Right: Knee [employer] 11/01/2027 FBPL / [id number] / Screw Interference 7x25mm Daljit Ft Round Soft Blunt Ti ([id number]) (Autoreq) - [id number] Implanted:Qty: 1 on 07/04/2023 by Aniket Jasmine MD at [facility] IMPLANTS Right: Knee [employer] [place] [id number] 10/28/2027 AR-1370H- 25 / / [id number] Screw Interference 8x25mm Daljit Ft Round Soft Blunt Ti ([id number]) (Autoreq) - [id number] Implanted:Qty: 1 on 07/04/2023 by Aniket Jasmine MD at [facility] IMPLANTS Right: Knee [employer] [place] [id number] 03/29/2028 AR-1380H- 25 / / [id number] Double Loaded Knee [employer] [place], Self Punching 2.6 Mm Implanted:Qty: 2 on 07/04/2023 by Aniket Jasmine MD at [facility] Right: Knee [employer] - [place] 04/29/2028 AR-3730SP / / [id number] Care Teams Polymerization Supervisor Relationship Specialty Start Date End Date Racquel Madrigal APRN [address] [place], [place] [address] PCP - General Family Medicine 05/09/23
--- OUTSIDE RECORDS SUMMARY | 2023-12-28 01:56 | XMS_ITS | Encounter Summary ---
Author Organization [facility] Address [address] [place] [address] Care Team Providers Care Plastic Cutter Name Role Phone Unavailable Primary Care Provider Unavailabl e Encounter Details Date Type Department Care Team (Late st Contact Info) Description 05/04/2020 14:30 EST Audiology [facility] Audiology - [address] [address] Danika Vazquez, AuD [address] [place] [phone] Sensorineural hearing loss (SNHL) of right ear with restricted hearing of left ear; Tinnitus, bilateral Social History Tobacco Use Types Packs/Day Years Used Date Smoking Tobacco: Never Assessed Interpersonal Safety Answer Date Record ed Physically Hurt Never 04/02/2020 Verbally Threaten Not on file 04/02/2020 Sex and Gender Information Value Date Recorded Sex Assigned at Not on file Gender Identity Not on file Sexual Orientation Not on file documented as of this encounter Progress Notes * Danika Vazquez, Zoey - 05/04/2020 1430 EST Adult Hearing Aid Follow-up Name: Dami Pisano Address: [address] [facility] [address] Date of : 1970 Primary Physician: No primary care provider on file. Diagnosis: Sensorineural hearing loss asymmetric, right ear poorer??and tinnitus bilateral Date of Service: 05/04/2020 Total Treatment Time: 30 minutes Name of Provider: Taras Bonilla SUBJECTIVE: I haven't been good. OBJECTIVE: History/Interview: Dami Pisano, 49 y.o., was seen today for a hearing aid follow-up. He was fit with a BiCROS hearing aid system on 04/19/2020 and reported that he has not yet had the opportunity totry the devices in a noisy environment. He also indicated that he has not used them consistently and that his girlfriend who is a hearing aid user explained to him the importance of consistent use. The patient inquired about volume control and connectivity to his phone. He briefly tried amplification in the past while living in [place]. He has a progressive asymmetric sensorineural hearing loss, right ear poorer, and constant tinnitus in both ears, more prominent on the right. The patient presented with the following hearing aid(s): Left Hearing Aid: Make/Model: Oticon Opn S2 miniRITE-T Style: Svnxcmmy-rx-kwr-Ear (RITE): Speaker size: 1-85, Dome size: 8mm open BRISENO serial number: [id number] Retention Tail: Yes Battery size: Rechargeable [place] Ion Color: Fonda Brown Wax prevention: ProWax miniFit Fitting formula: VAC+ Programs: None Volume control: Enabled Real Ear Verification (REM): Performed 04/19/2020 Warranty end date: (BRISENO): 05/09/2023 ?? Right Hearing Aid: Make/Model: Oticon CROS Style: Hhcevkkd-nq-unb-Ear (RITE): Speaker size: 1-60, Dome size: 8mm open BRISENO serial number: [id number] Retention Tail: Yes Battery size: Rechargeable [place] Ion Color: Fonda Brown Wax prevention: ProWax miniFit Fitting formula: VAC+ Programs: Mute with long press Volume control: Enabled Real Ear Verification (REM): Not performed - CROS device Warranty end date: (BRSIENO): 05/09/2023 ?? Linked equipment: None Date of fittin04/19/2020 Dispensary: [facility] Visual check: No apparent problems Programming Adjustments: Increased gain from adaptation level 1 to level 3 Enabled volume control on the left device Patient/Family/Associate Education: Patient/family education was provided regarding recommendationsand plan. Method of education: Verbal and Demonstration Barriers to education: None The patient was able to verbalize understanding of the information ASSESSMENT: The patient was counseled that the gain was increased today so he should notice that speech is clearer and that his girlfriend is correct regarding the importance of more consistent use. He was advised that many people are unable to engage in social or noisy environments due to current restrictionsrelated to the pandemic. He was shown how to use the volume control and attempt was made to connectthe aids to his phone. The gregor was downloaded but his bluetooth kept turning off automatically so the aids could not be paired. The patient is going to see if he can get the gregor to work at home. PLAN: The patient indicated that he would call as needed for appointments moving forward. Godfrey Bonilla. 05/04/2020 15:50 documented in this encounter Plan of Treatment Not on file documented as of this encounter Visit Diagnoses Diagnosis Sensorineural hearing loss (SNHL) of right ear with restricted hearing of left ear Tinnitus, bilateral Unspecified tinnitus documented in this encounter
--- OUTSIDE RECORDS SUMMARY | 2023-12-28 01:56 | XMS_ITS | Encounter Summary ---
Author Organization [facility] Address [address] [place] [address] Care Team Providers Care Security Vehicle Patrol Officer Name Role Phone Unavailable Primary Care Provider Unavailabl e Reason for Visit * Referral (Routine) - Receiving Office to Obtain Authorization Specialty Diagnoses / Procedures Referred By Arnel jacobs Referred To Contact Audiology Diagnoses Sensorineural hearing loss, bilateral Racquel Madrigal, KELLY [address] [place] [address] [facility] Audiology [address] [place] [address] Referral ID Status Reason Start Date Expiration Date Visits Requested Visits Authorized [id number] Receiving Office to Obtain Authorization 1 1 Encounter Details Date Type Department Care Team (Late st Contact Info) Description 04/09/2020 13:[address] [facility] Audiology - [address] [address] Danika Vazquez, Zoey [address] [place] [phone] Sensorineural hearing loss (SNHL) of right ear with restricted hearing of left ear; Tinnitus of both ears Social History Tobacco Use Types Packs/Day Years Used Date Smoking Tobacco: Never Assessed Interpersonal Safety Answer Date Record ed Physically Hurt Never 04/02/2020 Verbally Threaten Not on file 04/02/2020 Sex and Gender Information Value Date Recorded Sex Assigned at Not on file Gender Identity Not on file Sexual Orientation Not on file documented as of this encounter Progress Notes * Danika Vazquez AuD - 04/09/2020 1315 EST Adult Audiological Evaluation and Hearing Aid Evaluation Name: Dami Pisano Address: [address] [address] Date of : 1970 Primary Physician: No primary care provider on file. Referral Source: [facility] Adjssm rehab - evaluate and treat Referral Date: 03/18/2020 Diagnosis: Sensorineural hearing loss asymmetric, right ear poorer and tinnitus bilateral Date of Service: 04/09/2020 Total Treatment Time: 85 minutes Name of Provider: Taras Bonilla SUBJECTIVE: I basically have no hearing in the right ear. OBJECTIVE: History/Interview: Dami Pisano, 49 y.o., was seen today for a hearing evaluation and a hearing aidevaluation. He had onset of tinnitus and hearing loss in the right ear in 2006 and then onset of tinnitus in the left ear in 2008. He currently has constant bilateral tinnitus, which is more prominent in the right ear and which does not interfere with his sleep. The patient explained that he has had several hearing evaluations since 2006 which have indicated progressive hearing loss, more significant in the right ear. He tried hearing aids in both ears while living in [place] approximately one year ago and was dissatisfied with sound quality. He had a CT scan and an MRI in 2019 which were reportedly unremarkable. The patient has had intermittent episodes of dizziness since 2018 which he described as a woozy sensation with accompanying nausea; he denies experiencing vertigo. He mentioned aminor neck injury which may have pre-dated onset of dizziness symptoms and he is uncertain if thereis any correlation. He has a previous history of recreational and occupational noise exposure with consistent use of hearing protection. He denies recent ear infections and ear surgery. There is a family history of progressive hearing loss in his father with onset around age 50 years. Medical history is reportedly significant for borderline high cholesterol. Otoscopic Evaluation: Left Ear: Clear ear canal Right Ear: Clear ear canal Audiometry: (See attached audiogram. In Epic, see scans tab) Audiometric results were obtained today via: [facility] The following audiometric tests were performed: Air Conduction Bone Conduction Speech Environmental Remediation Engineer Threshold (SRT) Speech Recognition Behavioral Considerations: The patient was instructed in the test procedure. Responses were reliable and of good validity. Speech Environmental Remediation Engineer Threshold (SRT): Left Ear: 25dBHL Right Ear: 70dBHL Speech Recognition: Left Ear: 100% at 70dBHL Right Ear: 40% at 90dBHL COSI (Client Oriented Scale of Improvement): The first step in the COSI validation measure was completed today and specific needs were established including: (1) hear better in a group , (2) detect sound better while hunting , and (3) understand speech better on videos. Hearing Aid Selection: The benefits and limitations of amplification specific to the patient were discussed. The appropriateness of hearing aid style specific to both the patient and the hearing loss was discussed and a recommendation was made: The patient agreed with the recommended hearing aid(s). Left Ear: Make/Model: Oticon Opn S2 miniRITE-T Style: Gltsftdb-qn-qti-Ear (RITE): Speaker size: 1-85, Dome size: 8mm open Color: [place] brown Right Ear: Make/Model: Oticon CROS Style: Uwunjbvz-pr-ctf-Ear (RITE): Speaker size: 1-85, Dome size: 8mm open Color: [place] brown Patient/Family/Associate Education: Patient/family education was provided regarding results and recommendations. Method of education: Verbal and Written Barriers to education: None The patient was able to verbalize understanding of the information ASSESSMENT: Audiologic evaluation indicates a mild sloping to severe high frequency sensorineural hearing loss in the left ear and a moderately severe to severe essentially flat sensorineural hearing loss in theright ear. There is a significant asymmetry at 250-2000Hz, right ear poorer, consistent with previous audiograms. Hearing has decreased at 500-1000Hz in the right ear compared to 2019 audiogram. The patient was counseled regarding discussing possible vestibular physical therapy evaluation withhis PCP regarding his continued dizziness episodes. He was advised regarding hearing test results and that a trial with a BiCROS hearing aid system is recommended in light of his poor word recognition ability in the right ear. He indicated agreement with the plan and that he would be willing to trythat model. The patient has coverage through his [place] Medicaid plan for hearing aids so an MNF was completed for the devices through his insurance. Goal: Dami Pisano will be a successful and proficient hearing aid wearer. PLAN: The patient will return for a hearing aid fitting. He will discuss dizziness concerns and possible referral to vestibular physical therapist with his PCP. His hearing should be re-evaluated in 1 yearfor continued monitoring, sooner if change is suspected. Godfrey Bonilla. 04/09/2020 16:06 CC: Racquel Madrigal documented in this encounter Plan of Treatment Not on file documented as of this encounter Visit Diagnoses Diagnosis Sensorineural hearing loss (SNHL) of right ear with restricted hearing of left ear Tinnitus of both ears Unspecified tinnitus documented in this encounter
--- OUTSIDE RECORDS SUMMARY | 2023-12-28 01:56 | XMS_ITS | Encounter Summary ---
Author Organization [facility] Address [address] [place] [address] Care Team Providers Care Customer Strategy Manager Name Role Phone Unavailable Primary Care Provider Unavailabl e Encounter Details Date Type Department Care Team (Late st Contact Info) Description 08/09/2020 Lab Requisition [facility] Pathology & Laboratory Medicine - [address] [address] Outr Resulting Lab, Provider Social History Tobacco Use Types Packs/Day Years [...] Procedure Name Priority Date/Time Associated Diagnosis Comments LYME AB Routine 08/09/2020 8:36 EDT documented in this encounter Results * LYME AB (08/09/2020 8:36 EDT) Lyme Ab Negative Negative 08/10/2020 10:46 EDT [facility] Comment:New 3rd generation a ssay in use 10/08/2019 Blood VENOUS BLOOD / Unknown 08/09/2020 8:36 EDT 08/09/2020 21:12 EDT Provider Outr Resulting Lab IMMUNOLOGY A ND SEROLOGY ORDERABLES [facility] [address] [place] [address] documented in this encounter Visit Diagnoses Not on filedocumented in this encounter
--- OUTSIDE RECORDS SUMMARY | 2023-12-28 01:56 | XMS_ITS | Encounter Summary ---
Author Organization [facility] Address [facility] [place] [address] Care Team Providers Care Pumper Gauger Name Role Phone Racquel Madrigal APRN Primary Care Provider Reason for Visit * Reason Onset Date Comments Pre Procedure Call 06/19/2023 Encounter Details Date Type Department Care Team (Late st Contact Info) Description 06/19/2023 [place] [phone] Aniket Jasmine MD [facility] [place] [address] Pre Procedure Call Social History Tobacco Use Types Packs/Day Years Used Date Smoking Tobacco: Never Smokeless Tobacco: Never Alcohol Use Standard Drinks/Week Comments Yes 3 (1 standard drink = 0.6 oz pur e alcohol) Sex and Gender Information Value Date Recorded Sex Assigned at Not on file Gender Identity Not on file Sexual Orientation Not on file documented as of this encounter Miscellaneous Notes * Telephone Encounter - Kinza French - 06/19/2023 12:10 PM EST Returned call to Dami. He is going to send in a picture of his brace to [email or web address] [employer] message with the email. No other questions or concerns. Will follow up via [facility]. * Telephone Encounter - Keron Prabhakar - 06/19/2023 11:05 AM EST Who is calling? Dami Best call back number: [phone] Best time to call back between 8:00 am & 5:00 pm: Anytime Can we leave a message? yes When is your procedure? 07/04/23 Who is your surgeon? Dr. Jasmine What procedure are you having? 07/04/2023 1210 ARTHROSCOPIC ANTERIOR CRUCIATE LIGAMENT REPAIR (WRVU 14.3) - Right MODIFIER PATELLA TENDON ALLOGRAFT BONE TENDON BONE LIGAMENTOUS RECONSTRUCTION, KNEE, EXTRA ARTICULAR (WRVU 9.79) - Right Aniket Jasmine [facility] Scheduled What is the question you would like to ask the clinical care team? Dami called looking for an email that he could send a picture of a knee brace he has for someone on Dr. Jasmine' team to review. Damibelieves that the knee brace he currently has may suffice for after his surgery. Dami is going to attempt to send a picture through his [facility] account. If he is unable to, please advise if it is okay to provide Dami with the [email or web address] email to send a picture of the knee brace. Your message will be forwarded to the clinical care team for review. documented in this encounter Plan of Treatment Not on file documented as of this encounter Visit Diagnoses Not on filedocumented in this encounter Care Teams Pumper Gauger Relationship Specialty Start Date End Date Racquel Madrigal APRN [address] [place] [address] PCP - General Family Medicine 05/09/23 documented as of this encounter
--- OUTSIDE RECORDS SUMMARY | 2023-12-28 01:56 | XMS_ITS | Encounter Summary ---
[place] [address] Care Team Providers Care Executive Producer Promos Name Role Phone Racquel Madrigal APRN Primary Care Provider [phone] Reason for Referral * Physical Therapy (Routine) - Closed Specialty Diagnoses / Procedures Referred By Arnel t Referred To Contact Physical Therapy Diagnoses Injury of medial collateral ligament (MCL) of knee Aniket Jasmine MD [facility] [place] [address] Physical Therapy, [address] [address] Referral ID Status Reason Start Date Expiration Date V isits Requested Visits Authorized [id number] Closed Evaluate and Treat 06/08/2023 12/05/2023 30 30 Reason for Visit * Reason Comments Follow-up RIGHT KNEE SURGICAL DISCUSSION Encounter Details Date Type Department Care Team ([facility] Contact Info) Description 06/08/2023 3:00 PM EST Office [place] [address] Aniket Jasmine MD [facility] [place] [address] Injury of medial collateral ligament (MCL) of knee; Rupture of anterior cruciate ligament of right [...] on file documented as of this encounter Last Filed Vital Signs Vital Sign Reading Time Taken Comments Blood Pressure - - Pulse - - Temperature - - Respiratory Rate - - Oxygen Saturation - - Inhaled Oxygen Concentration - - Weight 74.8 kg (165 lb) 06/08/2023 2:36 PM EST Height 175.3 cm (5' 9) 06/08/2023 2:36 PM EST Body Mass Index 24.37 06/08/2023 2:36 PM EST documented in this encounter Progress Notes * Cindy Ricardo - 06/08/2023 3:00 PM EST Pre-Operative Patient Education Procedure: Right ACLR. Possible MCL, and meniscal debridement Post-op Imaging order placed: No H&P: To be completed Day of Surgery Consent: The surgical consent was reviewed with Dami by Dr. Aniket Jasmine. Procedure, risks, and benefits were reviewed. Questions were solicited and answered. The Dami understands these and the surgical consent was signed. Personal or Family Hx of blood clot?: no History of problems with anesthetics: no Problems with pain medication in the past?: no DME/Physical Therapy: Dami was given a DME order for crutches and brace. This can be obtained from any DME provider or medical equipment company. He was given a referral for physical therapy and a post operative protocol for their procedure today.. Dami understands the expectations around post operative physical therapy and that this is an important component of their recovery. He was instructed to schedule the first post operative appointment prior to the day of surgery. Dami was instructed that first appointment should be scheduled to federico murray at 2 days post op. Dami plans to pursue PT at [facility]. (ACL only) was patient given bag with post op dressing change: YES Discussed making sure they take care of child care giver, sleeping situations, and having help with ADL'sbefore day of surgery. Dicussed time frame for crutches . Dami was given a bottle of Hibiclens to be used in the shower the night before and the morning of their procedure. Showering instructions were reviewed. Medications and Pain Management: Reviewed with Dami to discontinue use of NSAIDS and Aspirin 7 days before surgery. Tylenol is okayto take Anticoagulation plan post op: ASA 81mg BID for 14 days 06/08/2023 Opioid PDMP [place] PDMP Query Date 06/15/2023 Dami Pisano is being prescribed a prescription opioid for the treatment of acute post-operative pain related to Orthopedic surgery. Dami Pisano has been advised to take the smallest dose possible to control their pain and as their pain improves to take smaller doses and increase the time between doses. In addition to this medication, non-opioid medications have been prescribed for adjunct treatment of their pain. Non-pharmacological treatment such as ice, elevation and activity modification have been recommended as appropriate. The Acute Opioid Therapy Informed Consent form has been completed and sent to medical records for scanning to chart. Dami will call to schedule this procedure if he has not heard from them in 72 hours, he was given the surgical schedulers direct number Cindy Ricardo Bander Operator Department of Orthopaedics Division of Sports Medicine * Aniket Jasmine MD - 06/08/2023 3:00 PM EST Chief complaint: Right knee injury HPI: 52-year-old male with a right knee injury. Please see the note by Dr. Thapa for details of his presentation. He was actually sent down for a second opinion around ligament injury from Dr. Leighann Garcia. He brings in a MRI scan from early 1999' in hardcopy form when he had initial partial ACL tear. He then had a subsequent injury cross-country skiing and a new MRI scan demonstratingACL injury as well as MCL injury. He also has meniscal injury noted on MRI. He lives alone in [place]. 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 Exam: Right knee with a mild effusion. Near full range of motion. 2B Felipe's exam. His knee Slightly into valgus in full extension and significantly at 30 degrees of flexion with an endpoint. He has very mild tenderness around the medial joint line. Imaging: Personal review and interpretation of his MRI scan demonstrates anterior cruciate ligamentdisruption as well as significant MCL injury proximally. His medial meniscus is significantly abnormal with the linear fluid signal in an oblique fashion at the posterior horn extending into the mid body. A/P: 52-year-old active male with a acute on chronic injury to his right knee. Currently ACL MCL deficient with medial meniscal tear which is chronic in appearance and MRI scan. We discussed at length. Discussed options. Agreed upon ACL reconstruction with patellar tendon allograft, probable MCL reconstruction with semitendinosus allograft and medial meniscal treatment and repair versus debridement. Reviewed specific risk benefits. Risk including but not limited to infection, blood clot, stiffness, incomplete relief of symptoms. Informed consent was obtained. We may need to involve social work here as he lives alone. Also he needs to coordinate around travel to [place] to visit his elderly mother. documented in this encounter Plan of Treatment Scheduled Referrals Name Type Priority Associated Diagnoses Orde r Schedule Referral to Physical Therapy Outpatient Referral Routine Injury of medial collateral ligament (MCL) of knee Ordered: 06/08/2023 documented as of this encounter Visit Diagnoses Diagnosis Injury of medial collateral ligament (MCL) of knee Rupture of anterior cruciate ligament of right knee, initial encounter documented in this encounter Care Teams Executive Producer Promos Relationship Specialty Start Date End Date Racquel Madrigal APRN [address] [facility] [address] [place] [address] PCP - General Family Medicine 05/09/23 documented as of this encounter
--- OUTSIDE RECORDS SUMMARY | 2023-12-28 01:56 | XMS_ITS | Clinical Summary ---
Author Organization [facility] Address [address] [place] [address] Care Team Providers Care Pipe Line Repairer Name Role Phone Unavailable Primary Care Provider Unavailabl e Social History Tobacco Use Types Packs/Day Years Used Date Smoking Tobacco: Never Assessed Interpersonal Safety Answer Date Record ed Physically Hurt Never 04/02/2020 Verbally Threaten Not on file 04/02/2020 Sex and Gender Information Value Date Recorded Sex Assigned at Not on file Gender Identity Not on file Sexual Orientation Not on file Plan of Treatment Health Maintenance Due Date Last Done Comments Hepatitis C Screen 1970 Hepatitis B Vaccine (1 of 3 - 19+ 3-dose series) 12/23 COVID-19 Vaccine ( season) 2022
--- OUTSIDE RECORDS SUMMARY | 2023-12-28 01:56 | XMS_ITS | Encounter Summary ---
Author Organization [facility] [place] [address] Care Team Providers Care Social Insurance Administrator Name Role Phone Unavailable Primary Care Provider Unavailabl e Encounter Details Date Type Department Care Team (Late st Contact Info) Description 04/12/2023 Ancillary [place] [address] Kiran Carvajal MD [facility] [place] [address] Social History Tobacco Use Types Packs/Day Years [...] Associated Diagnosis Comments FILM LIBRARY STORAGE ONLY DX KNEE Routine 04/12/2023 12:00 AM EST documented in this encounter Results * Film Library- Storage Only DX Knee (04/12/2023 12:00 AM EST) Narrative FRANK - 05/03/2023 2:22 PM EST This exam is auto-finalizing. It's purpose is for storage only. Kiran Carvajal MD IMG FILM LIBRARY OR DERABLES [place], [place] documented in this encounter Visit Diagnoses Not on filedocumented in this encounter
--- OUTSIDE RECORDS SUMMARY | 2023-12-28 01:56 | XMS_ITS | Encounter Summary ---
Author [facility] [place] [address] Care Team Providers Care Analyst Food And Beverage Name Role Phone Racquel Madrigal APRN Primary Care Provider [phone] Reason for Visit * Reason Onset Date Comments Post Procedure Call 07/05/2023 Encounter Details Date Type Department Care Team (Late st Contact Info) Description 07/05/2023 Telephone [place] [id number] Aniket Jasmine MD [facility] [address] [place] [address] Post Procedure Call Social History Tobacco Use Types Packs/Day Years Used Date Smoking Tobacco: Never Smokeless Tobacco: Never Alcohol Use Standard Drinks/Week Comments Yes 3 (1 standard drink = 0.6 oz pur e alcohol) once per week [facility] Inpatient Questions Answer Date Recorded Does Anyone [...] * Telephone Encounter - Kinza French - 07/10/2023 1:33 PM EDT Faxed over op note and PT protocol also added where to find the protocols online. No other questions or concerns. * Telephone Encounter - Tarah Stone - 07/10/2023 12:47 PM EDTSummary: Protocol for Physical Therapist. A copy of the protocol is requested, please verify where to find it, what is the web site for this? [facility] Physical [place], [place] Please fax a copy to [phone] * Telephone Encounter - Cindy Ricardo - 07/05/2023 4:38 PM EST I reached out to let Arina know that if they are not able to get him in tomorrow that Sunday was fine. * Telephone Encounter - Alexus Villagomez - 07/05/2023 4:20 PM ESTSummary: Post op PT Name of person calling : Arina Who is the provider: Kenroy Have you had surgery: Yes If yes : DOS: 07/04/2023 Surgeon: Kenroy Is there a new injury: No If yes, how did the new injury occur?: Best contact number: [phone] What is the question: Arina was unsure of when patients surgery was she called back to get date. This would mean PT needs to start tomorrow. Arina is wondering if they can't get him in tomorrow if it would be acceptable to get him in on Sunday? documented in this encounter Plan of Treatment Not on file documented as of this encounter Visit Diagnoses Not on filedocumented in this encounter Care Teams Analyst Food And Beverage Relationship Specialty Start Date End Date Racquel Madrigal APRN [address] [place] [address] PCP - General Family Medicine 05/09/23 documented as of this encounter
--- OUTSIDE RECORDS SUMMARY | 2023-12-28 01:56 | XMS_ITS | Encounter Summary ---
[place] [address] Care Team Providers Care Station Helper Name Role Phone Racquel Madrigal APRN Primary Care Provider [phone] Reason for Visit * Auth/Cert (Routine) Specialty Diagnoses / Procedures Referred By Arnel t Referred To Contact Diagnoses Rupture of anterior cruciate ligament of right knee, initial encounter ACL/MLC/MMT tear, Right knee Procedures PRO KNEE SCOPE, AID ANT CRUCIATE REPAIR PRO LIGMT REVISION, KNEE, EXTRA-ARTIC ARTHROSCOPIC ANTERIOR CRUCIATE LIGAMENT REPAIR (WRVU 14.3) MODIFIER PATELLA TENDON ALLOGRAFT BONE TENDON BONE LIGAMENTOUS RECONSTRUCTION, KNEE, EXTRA ARTICULAR (WRVU 9.79) Emily Jasmine MD [facility] [place] [address] [facility] Referral ID Status Reason Start Date Expiration Date Visits Re quested Visits Authorized [id number] 1 1 Encounter Details Date Type Department Care Team (Late st Contact Info) Description 07/04/2023 10:10 AM EST - 07/04/2023 1:25 PM EST Surgery [place] [address] Emily Jasmine MD [facility] [place] [address] ARTHROSCOPIC ANTERIOR CRUCIATE LIGAMENT REPAIR (WRVU 14.3) Social History Tobacco Use Types Packs/Day Years Used Date Smoking Tobacco: Never Smokeless Tobacco: Never Tobacco Cessation:Counseling Given: Not Answered Alcohol Use Standard Drinks/Week Comments Yes 3 (1 standard drink = 0.6 oz pur e alcohol) once per week [facility] Inpatient Questions Answer Date Recorded Does Anyone Try to Keep You From Having Contact with Others or Doing Things Outside Your Home? no 07/04/2023 Feels Threatened by Someone no 0 09/2023 Feels Unsafe at Home or Work/School no 07/04/2023 Physical Signs of Abuse Present no 07/04/2023 Sex and Gender Information Value Date Recorded Sex Assigned at Not on file Gender Identity Not on file Sexual Orientation Not on file documented as of this encounter Last Filed Vital Signs Vital Sign Reading Time Taken Comments Blood Pressure 121/68 07/04/2023 12:45 PM EST Pulse 73 07/04/2023 1:00 PM EST Temperature 36.2 ??C (97.2 ??F) 07/04/2023 12:[address] Respiratory Rate 16 07/04/2023 12:25 PM EST Oxygen Saturation 97% 07/04/2023 1:00 PM EST Inhaled Oxygen Concentration - - Weight 70.3 kg (155 lb) 07/04/2023 8:32 AM EST Height 175.3 cm (5' 9) 07/04/2023 8:32 AM EST Body Mass Index 22.89 07/04/2023 8:32 AM EST documented in this encounter Discharge Instructions * Discharge Instructions* Grace Harvey RN - 07/04/2023 9:21 AM EST General Anesthesia Discharge Instructions Go home and rest. You may be sleepy for several hours. Take it easy as sudden position changes may cause nausea and/or dizziness. Use caution on stairs. Do not smoke if you are alone. Follow a light to regular diet as tolerated today. If nausea occurs, start with clear liquids, and progress slowly to a regular diet. Do not drive, operate machinery, drink alcoholic beverages or make any legal decisions after havinggeneral anesthesia. The medications given change your reaction time and alter your judgement. IV site -- slight redness is normal, you can use warm compresses. If tenderness and redness increases or foul drainage occurs, please contact your M.D. Patients who have had endotracheal tubes/LMA (tubes used by the anesthesia staff to ensure a safe airway during your operation) may have a sore throat. This is normal and cold liquids or soothing lozenges will help ease this discomfort. Narcotic pain medications can cause constipation, please ask the surgeons office what they recommend for prevention of this. Some non-pharmaceutical means of constipation prevention include increasing intake of fluids, eating more fruits and vegetables as well as fruit juices. If you are uncomfortable and/or unable to urinate within 8 hours of discharge and it is before 5 pm, call your physician. If it is after 5pm go to the closest emergency room or call the hospital drain tile machine operator at [phone] and ask for physician chief operations officer covering for your physician. Questions or problems after 5pm or on a weekend: Call the [facility] drain tile machine operator at and ask for the physician chief operations officer covering for your doctor. Lower Extremity Nerve Block Nerve blocks affect many types of nerves. The affected nerves control movement, pain, and normal sensation. This causes feelings such as: Weakness Numbness Tingling Heaviness A feeling that your leg or foot has fallen asleep. A nerve block can last from about 2 to 48 hours, depending on the medications used. Usually the weakness wears off first, then you will feel a numb or tingly sensation. Finally, the pain may come back. This can happen in any order. If you continue to feel the effects of the nerve block for longer than 48 hours, please call the Anesthesiology department at . Pain Medication If needed, your surgeon will give you a prescription for pain medication. Start taking this medication before the nerve block wears off. Nerve blocks sometimes wear off during the night. It is a goodidea to take your pain medicine as prescribed before going to sleep so you won't wake up with pain.The idea is to have pain medicine in your body before the nerve block wears off. To help prevent nausea, eat something before taking the pain medicine. Once a nerve block starts to wear off, it is usually completely gone within 60 minutes. It is important to have pain medicine in your system before the block wears off completely. Helpful tips to protect the part of your body that is numb. After a nerve block, you cannot feel pain, pressure, or extremes in temperature. Because your leg or foot is numb, it is more at risk for injury. Therefore.... While you are awake, try to change positions of your leg or foot often. This will help you avoid putting too much pressure on the limb for long periods of time. While sleeping, pad the blocked limb with pillows to avoid placing too much pressure on the limb. If you have a cast or a tight dressing, check the color of your toes every couple of hours. Call your doctor if any look discolored. Ask your family or support people to help with the above hints. QUESTIONS? Please call the Anesthesiology department at with concerns or after hours and ask for the anesthesiologist chief operations officer. At 8:30 am you received 975 mg of acetaminophen- Your next dose should not be taken before 8 hours have passed or as advised by your provider. Next dose not before- 4:30 pm You should not take more than a total of 3000 mg of acetaminophen in a 24 hour period. * Patient Instructions* Cindy Ricardo - 07/04/2023 9:06 AM EST Images from the original note were not included. ACL Reconstruction w/ MCL Repair Discharge Instructions Activity: Please keep affected extremity elevated and ice as needed. BRACE USE: Locked in full extension until seen back in Orthopaedic clinic WEIGHT BEARING: Touch down weight bearing until seen back in Orthopaedic clinic. Provide patient with crutches and crutch instruction Do not drive until instructed to do so by your surgeon's team Pain Medication Protocol: Oxycodone 5 mg every 4 hours as needed. Take this medication with a small amount of food to help prevent nausea. This medication is a short acting narcotic pain medication. Jvtl-jba-mwwfjye Tylenol (acetaminophen) should be taken in addition to narcotic. This will allow the narcotic to work more effectively, and may make it easier to discontinue the narcotic sooner. Follow the instructions on the Tylenol package for dosage and frequency. Do not exceed 3000mg acetaminophen per day. Anti-Coagulation Plan: 1) Aspirin - You have been discharged on enteric-coated Aspirin 81 mg by mouth twice daily. Continue this for 2 weeks from surgery or until your mobility improves and surgeon instructs you to stop. Take with meals to minimize gastrointestinal (stomach) irritation. This is to help prevent a blood clot. Post-operative constipation: Constipation is common after surgery. Drinking plenty of water is important in helping to prevent this. An rumk-ywj-xghljev stool softener can also help prevent or treat constipation. Colace 100mg tablets can be obtained at most pharmacies and can be taken 2 - 3 times a day. The pain medication may also cause nausea. If you have significant nausea, we can provide a prescription for an anti-nausea medication. Cryotherapy: Ice is a highly effective anti-inflammatory in the postoperative period. It helps reduce inflammation and pain. Apply an ice pack to the surgical area for 20-30 minutes every 1-[address]. [address] ice directlyon the skin as this can cause frostbite; place a towel/rag between the ice and skin. Specific cooling machines have been designed to help with icing. Your physical therapist may use this during therapy sessions Dressing/Wound Care: You may remove the SLICK wrap and bandages after [address] dry gauze over the knee if there is any bleeding or drainage. Please contact us with concerns with the incision. Please also place either the black compression stocking given today or the slick wrap back on the leg to provide compression Showering Instructions: After 72 hours you may shower, for safety it is best to shower seated untilyou have discontinued your crutches. If possible use a shower chair for safety. You may choose to remain in the brace and use a shower bag over your brace, or you may remove your brace once seated inthe shower and put your brace back on before you go to stand. Please be very careful during showering/bathing and ensure you are safely seated or able to stand safely without risk of falling/injury. NO BATHING OR SUBMERGE IN THE AREA, if the area becomes wet please dry it well and replace any wet dressings. Physical Therapy: Your first appointment with physical therapy should be scheduled 2 days after surgery. If your physical therapist has questions on physical therapy protocol please have them contactour office. IF YOU ARE NOT ABLE TO BE SEEN BY PHYSICAL THERAPY BY SUNDAY PLEASE CALL OUR OFFICE. Exercises: These may start today or tomorrow, your physical therapist will instruct you on these exercises andmore when you meet with them 1. Ankle Pumps - moving your ankle up and down, this may be performed 3-5 times a day or more and anywhere between 15-30 repetitions at a time. This exercise helps to ensure blood flow to the lower extremity and helps to decrease risk of blood clot formation. This may be performed in your brace. 2. Quadriceps Sets - This exercises focuses on activating your quadriceps muscle. This can be performed 3-4 times a day 20-50 repetitions at at time. Focus on squeezing your quad muscles as you do this exercise, if you have difficulty you may squeeze both quads at the same time. This may be performed in your brace. Call our office if you develop: Fever greater than 100.5 Severe nausea or vomiting Increasing pain that is not controlled by pain medications Increasing redness, swelling, or drainage from incisions Change in sensation Future Appointments Date Time Provider Department Center 07/24/2023 1:20 PM Emily Jasmine MD [facility] [address] [place] [address] If you have questions or concerns please contact our [facility] office Sunday through Sunday, 8 AM - 5 PM, at . If it is after 5 PM or on the weekend, please call and ask to speak with the Orthopedic resident on-call. Patient Instructions Crutch Training Partial Weight Bearing status: Feet even and comfortably spaced. Crutches should be about 6 inches in front of your feet and about6 inches to the outside. Place both crutches and involved foot forward. Bearing weight on your hands, push down on crutches and bring uninvolved foot forward. Non-Weight Bearing status: Injured side held off the floor. Crutches should be about 6 inches in front of your uninvolved footand about 6 [address] to [address] both crutches forward a comfortable distance. Bear down on your hands, and straighten your elbows. Lift involved leg off the floor and swing body through crutches. Place uninvolved foot in front of crutches. Climbing stairs ???Up with the Good?? : Walk up close to the stairs and place uninvolved leg up one step. Put weight on hand toys and games hand finisher of crutches, straighten uninvolved leg, and bring involved leg and crutches up on step. Descend stairs ???Down with the Bad?? : Come to the edge of the steps and place the crutches on the lower step. Bring the involved leg down to the step with the crutches. Put weight on the hand toys and games hand finisher of crutches and bring uninvolved leg down to the step. Tips: Walk slowly and carefully. Do not rest crutches under your armpits. If there is irritation you may try placing a towel around the arm rests. Remove throw rugs from the floors to prevent any slipping. Have someone with you while walking the first few days until you feel steady on your feet, especially on stairs and uneven surfaces. documented in this encounter Medications at Time of Discharge Medication Sig Dispensed Refills Start Date End Date meclizine (Antivert) 25 mg tablet Take 1 tablet by mouth Three Times Daily for DHE. 02/07/2023 aspirin EC 81 mg EC (DR) tablet Take 1 tablet by mouth 2 times daily for 14 days. 28 tablet 07/04/2023 07/18/2023 oxyCODONE (Roxicodone) 5 mg tablet Take 1 tablet by mouth every 4 hours as needed for Pain. 20 tablet 07/04/2023 08/24/2023 documented as of this encounter Progress Notes * Grace Harvey RN - 07/04/2023 1:21 PM ESTSummary: [facility] discharge Patient discharge instructions and medications reviewed with patient and sister prior to discharge,all questions answered, both verbalized understanding. Written instructions and medication log senthome with sister for patient. 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 Patient assisted to bathroom and car by [facility] staff, gait steady with crutches, no complaints and all personal items with patient on discharge. * Candice Kendall RN - 07/04/2023 9:33 AM EST Date/Procedure: Meds Given Comments Cataract Midazolam: Fentanyl: Bone Marrow Biopsy Midazolam: Fentanyl: RLE Peripheral Nerve Block Midazolam: 2 mg Tolerated well documented in this encounter H&P Notes * Davin Singh MD - 07/04/2023 9:19 AM EST PRE-OPERATIVE HISTORY AND PHYSICAL for ADMISSION, OBSERVATION OR PROCEDURE Date of : 1970 Age: 52 y.o. PCP: Racquel Madrigal APRN Presenting Diagnosis/Chief Complaint: Right knee injury History of Present Illness: Dami Pisano is a 52 y.o. male who presents for pre-operative examination. Please see Dr. Jasmine's note for full details of the patient's specific problem. Patient denies any recent change in health,no recent illness. No CP, SOB, fevers, chills. PMHx: Patient Active Problem List Diagnosis Code Injury of medial collateral ligament (MCL) of knee S89.90XA Rupture of anterior cruciate ligament of right knee S83.511A History reviewed. No pertinent past medical history. History reviewed. No pertinent surgical history. Home Medications: Medications Prior to Admission Medication Sig Dispense Refill Last Dose meclizine (Antivert) 25 mg tablet Take 1 tablet by mouth Three Times Daily for DHE. More than a month Allergies: No Known Allergies Family History: Non contributory History reviewed. No pertinent family history. Review of Systems: as per HPI Physical Exam: VITALS: Temperature Temp: 36.6 ??C (97.9 ??F) Heart Rate Heart Rate: 58 Blood Pressure BP: 133/71 Respiratory Rate Resp: 16 SpO2 SpO2: 97 % No intake/output data recorded. General: alert, appears stated age, and cooperative Pulmonary: equal, clear breath sounds bilaterally and no crepitus Cardiovascular: S1S2 present Assessment and Plan: 52 y.o. male with the above problem, plan to proceed to OR with Dr. Jasmine for right knee ACL reconstruction with BTB allograft, possible MCL repair vs reconstruction Davin Singh MD . documented in this encounter Miscellaneous Notes * Op Note - Emily Jasmine MD - 07/04/2023 10:06 AM EST [facility] Operative Note Patient Name: Dami Pisano : [id number] MR#: [id number] Case Date: 07/04/2023 Surgeon: Surgeon(s) and Role: * Emily Jasmine MD - Primary * Davin Singh MD - Resident - Assisting * Thad Celaya MD - Resident - Assisting Preoperative diagnosis: ACL/MLC/MMT tear, Right knee Postoperative diagnosis: ACL/MLC/MMT/LMT tear, Right knee Procedure(s) (LRB): ARTHROSCOPIC ANTERIOR CRUCIATE LIGAMENT REPAIR (WRVU 14.3) (Right) MODIFIER PATELLA TENDON ALLOGRAFT BONE TENDON BONE (N/A) LIGAMENTOUS REPAIR, KNEE, COLLATERAL (WRVU 9.08) (Right) ARTHROSCOPY WITH MENISCECTOMY, LAT.& MEDIAL WITH SHAVING (WRVU 7.39) (Right) Tourniquet time: 115 min @250mmHg. Implants: Arthrex titanium interference screw 7mm x 25mm (Femur) Arthrex titanium interference 8mm x 25mm (Tibia) MCL: 2 Arthrex Knee FiberTak anchors. Operative Findings: Suprapatellar pouch: minimal adhesions Medial and lateral gutters: clear w/no loose bodies Patellofemoral Joint: Patella: grade 1 chondral change Trochlea: grade 1 chondral changes. Lateral Compartment: Meniscus: chronic high grade partial root tear w/stump Femoral condyle: grade 1 chondral change Tibial plateau: grade 1 chondral change Medial Compartment: Meniscus: Chronic complex tear with large medial and central flaps Femoral condyle: grade 1 chondral change Tibial plateau: grade 1 chondral change Interconylar notch: Complete tear of the ACL, in-tact PCL INDICATIONS: 52 year old male s/p injury w/acute on chronic injuries to the knee. After discussing the risks and benefits of operative and non-operative management, the patient elected to undergo theabove procedures. PRE-OPERATIVE COURSE: The patient was greeted in the preoperative holding area where the right kneewas confirmed to be the correct site of surgery with both the patient and the informed consent. Theoperative knee was then marked with a green cheesh-na. The plan was reviewed with the patient and all questions were answered. The patient was then taken to the operating room and placed supine on the operating room table. After anesthesia was induced, the patient was positioned with all bony prominences well padded. A non-sterile tourniquet was place high on the operative thigh. A lateral post and foot ivan were placed in the appropriate position. An SCD was placed on the non-operative lower ext remity. The operative extremity was then prepped and draped in a sterile fashion with chlorhexidinescrub and Chloraprep. A time-out was called with proper procedure, site and consent confirmed. Antibiotics were administered prior to incision. EXAM UNDER ANESTHESIA: Lachmans: 2 Subtle gapping into valgus in full extension. OPERATIVE DESCRIPTION: Graft Preparation: On the back table the patellar tendon allograft was soaked in saline until appropriated thawed. It was then fashioned with a 23mm bone block from the patella and 25mm bone block from the tibia and passed through a 10mm sizer. Two drill holes were placed in the bone blocks and #2 PDS sutures were passed through the patella block and #2 FiberWire through the tibial bone block. The graft was then placed on tension in the graftmaster and covered with a Vancomycin soaked gauze. MCL repair: I began by making a 4 cm incision 2 fingerbreadths distal to the joint line between thetibial tubercle and the posterior aspect of the tibia. Sharp dissection through skin down to fasciawhere the pes tendons were identified. I dissected just proximal to the tendons to reveal the underlying MCL distally which was healthy and intact. This was dissected proximally up towards the femoral condyle. Separate 3 cm incision was made directly over the epicondyle, full-thickness flaps were raised. We were able to identify the hamstrings and retract them posteriorly and the chronically tornproximal MCL tissue was identified and dissected free. Scar and granulation tissue removed deep to the MCL and the medial epicondyle and joint line were identified. 2 fiber tack anchors were placed. 1 at the proximal insertion of the superficial MCL and 1 at the insertion of the deep MCL, essentially just off of the articular cartilage. These were then passed through the proximal aspect of the MCL, for the deep just a mattress suture was placed for the proximal a short whipstitch was placed. These were then left in place for later fixation as our final MCL repair. Diagnostic Arthroscopy: After injecting the knee with 60 cc of normal saline, a standard lateral portal was established. The arthroscopic camera was advanced into the joint. Under direct visualization, a medial portal was established. A systematic arthroscopic examination of the knee revealed the findings as noted above. Meniscal Intervention: Both medial and lateral meniscal tears were chronic appearing in nature. On the medial side the stumps of the torn tear were debrided back to stable base with a combination of an arthroscopic biter and shaver. Laterally the root stump was debrided back with a biter and a shaver as well. ACL Reconstruction: In the intercondylar notch the torn ACL was debrided back to its femoral and tibial insertion sites with a full-radius shaver and Arthrocare wand. Viewing from the lateral portal a curette was used to larry the planned location for our femoral tunnel. With the knee hyperflexed, a size 6 over the top guide was then placed through a medial portal and the center of our femoral tunnel was marked with a Beath pin - this confirmed the correct location of the previously marked position. At this point the low profile reamer was advanced through the medial portal. The knee was then again hyperflexed and the beath pin was advanced through the reamer, into the previously marked positionand then through the femur and out the lateral thigh. This was then over reamed to a depth of 25 mm. An ethibond suture was shuttled through the femoral tunnel for later graft passage. The tunnel wasvisualized and we had an ~1.5 mm back wall. At this point the shaver was again advanced into the joint and all loose debris was removed. The tunnel was notched to accommodate the nitinol wire. Tibial guide was then set at 55 degrees and positioned adjascent to the anterior horn of the lateral meniscus biased medially. Skin incision was made just medial and distal to the tibial tubercle. Bovie was used to dissect down to bone defining the location of our tibial tunnel. The guide was placed and the 2.7 mm Beath pin was advanced up and into the joint. The cannulated solid core reamer was advanced over the Beath pin creating our tibial tunnel. Debris was removed with a shaver. The posterior aspect of the tibial tunnel was shaved smooth the transition. Soft tissue was removed from the tibial aperture. Ethibond was retrieved through the tibial tunnel. The graft was then brought from the back table. The graft was passed up through the tibia into the femoral tunnel. With tension on the graft, the knee was flexed and the nitinol wire was placed into the previously notched position in the femoral tunnel. The Arthrex interference screw was then advanced into the femur achieving excellent fixation of the graft. The graft position was visualized and felt to be appropriate. We then irrigated the knee copiously and removed all arthroscopic instruments. The knee was then cycled 20 times and then brought to just shy of full extension. A posterior drawer was applied with a slight valgus stress. A nitinol wire was placed up the tibial tunnel and the second interference screw was advanced up the tibial tunnel achieving excellent purchase. Felipe's exam was performed and found to be negative. The knee was brought to 30 degrees of flexion with a varus load. The MCL was then repaired by tyingdown our 2 suture anchors first proximally and then distally. The knee was then brought to full extension and there was no gapping into valgus in that position or at 30 degrees of flexion. Deep tissues were closed with 0 and 3-0 Vicryl and 3-0 Monocryl for skin. The portal sites were closed with 3-0 Monocryl. The wounds were covered with Steri- Strips and a dry sterile dressing. The patient's leg was placed in a Brittanie brace. The patient was then extubated and transferred back to thehospital bed and to the PACU in stable condition. All counts were correct at the end of the case. There were no apparent complications. Post-operative plan: Patient will be discharge to home once they meet PACU criteria. [facility]will [facility] per a [facility] pathway (while there was no meniscal repair performed. We will rehab Mr. Pisano per the ACL/meniscal repair protocol, keeping him toe-touch weightbearing for the first 2 weeks and then letting him transition to weight-bear as tolerated but keeping him locked in extension until 6 weeks postop. He should be allowed to work on range of motion in a unlimited fashion in P starting from day 1.. Attestation: Case Date: 07/04/2023 I was present and I participated during the entire procedure (does not need to include opening and closing). EMILY JASMINE MD 07/04/2023 documented in this encounter Plan of Treatment Not on file documented as of this encounter Procedures Procedure Name Priority Date/Time Associated Diagnosis Comments ARTHROSCOPY W/ MENISCECTOMY, LAT.& MEDIAL W/ SHAVING Routine 07/04/2023 11:55 AM EST Rupture of anterior cruciate ligament of right knee, initial encounter LIGAMENTOUS REPAIR, KNEE, COLLATERAL Routine 07/04/2023 11:55 AM EST Rupture of anterior cruciate ligament of right knee, initial encounter Knee Scope, Single Menisectomy ([id number]) 07/04/2023 9:32 AM EST Rupture of anterior cruciate ligament of right knee, initial encounter Repair Primary Torn Ligament/Capsule, Knee, Collateral ([id number]) 07/04/2023 9:32 AM EST Rupture of anterior cruciate ligament of right knee, initial encounter MODIFIER PATELLA TENDON ALLOGRAFT BONE TENDON BONE 07/04/2023 9:32 AM EST Rupture of anterior cruciate ligament of right knee, initial encounter Knee Scope, Aid Ant Cruciate Repair ([id number]) 07/04/2023 9:32 AM EST Rupture of anterior cruciate ligament of right knee, initial encounter ARTHROSCOPIC ANTERIOR CRUCIATE LIGAMENT REPAIR Routine 07/04/2023 8:24 AM EST Rupture of anterior cruciate ligament of right knee, initial encounter documented in this encounter Visit Diagnoses Diagnosis Rupture of anterior cruciate ligament of right knee, initial encounter Rupture of anterior cruciate ligament of right knee, initial encounter documented in this encounter Administered Medications Inactive Administered Medications - up to 3 most recent administrations Medication Order MAR Action Action Date Dose Rate Site acetaminophen (Tylenol) tablet 975 mg 975 mg, Oral, ONCE, 1 dose, On Sun07/04/23 at 0845, Administer with a SIP of water only. Maximum dose of acetaminophen is 4,000 mg from all sources in 24 hours., Day of Surgery (Day of Procedure), Routine Given 07/04/2023 8:39 AM EST 975 mg BUpivacaine (pf) (Marcaine) (2.5 mg/mL) 0.25% injection PRN, Starting on Sun07/04/23 at 1144, Until Sun07/04/23 at 1626, Intra-Operative (Intra-Procedure), Routine Given 07/04/2023 11:44 AM EST 10 mLs 19- Surgical Site lactated ringers infusion 1,000 mL, at 100 mL/hr, Intravenous, CONTINUOUS, Starting on Sun07/04/23 at 0845, Until Sun07/04/23 at 1322, Day of Surgery (Day of Procedure) New Bag 07/04/2023 9:20 AM EST 1,000 mLs 100 mL/hr midazolam (pf) (Versed) (1 mg/mL) injection 1 mg 1 mg, Intravenous, EVERY 5 MIN PRN, Starting on Sun07/04/23 at 0824, Until Sun07/04/23 at 1322, Sleep, or prior to injection of local anesthetic, Hold for delirium/agitation. (Maximum dose 5 mg)., Intra-Operative (Intra-Procedure), Routine Given 07/04/2023 9:12 AM EST 2 mg oxyCODONE (Roxicodone) tablet 5 mg 5 mg, Oral, ONCE PRN, 1 dose, Starting on Sun07/04/23 at 0921, Until Sun07/04/23 at 1626, Pain, Routine vancomycin (Vancocin) injection PRN, Starting on Sun07/04/23 at 1010, Until Sun07/04/23 at 1626, Intra-Operative (Intra-Procedure), Routine Given 07/04/2023 10:10 AM EST 1 g 19- Surgical Site documented in this encounter Active and Recently Administered Medications Times are shown in EST. Scheduled Medication Order 07/02/2023 07/03/2023 07/04/2023 acetaminophen (Tylenol) tablet 975 mg (COMPLETED) 975 mg, Oral, ONCE, 1 dose, On Sun07/04/23 at 0845, Administer with a SIP of water only. Maximum dose of acetaminophen is 4,000 mg from all sources in 24 hours., Day of Surgery (Day of Procedure), Routine 838 (Given - Provid er: Candice Kendall RN) ceFAZolin (Ancef) (100 mg/mL) injection solution 2 g (COMPLETED) 2 g, Intravenous, ONCE, 1 dose, On Sun07/04/23 at 0845, Pre-op antibiotic to be given within 1 hour of incision To be prepared by and administered by Anesthesia. Reconstitute each ceFAZolin 1 gram vial with 10 mL of NS or SWFI = 100 mg/mL May inject IV without further dilution over 3 to 5 minutes., Intra-Operative (Intra-Procedure), Indication for (Active or Suspected): Prophylaxis 938 (Given - Provid er: Tameka Sherman CRNA) Continuous Medication Order 07/02/2023 07/03/2023 07/04/2023 lactated ringers infusion (CANCELED) 1,000 mL, at 100 mL/hr, Intravenous, CONTINUOUS, Starting on Sun07/04/23 at 0845, Until Sun07/04/23 at 1322, Day of Surgery (Day of Procedure) 0920 (New Bag - Prov ider: Candice Kendall RN) PRN Medication Order 07/02/2023 07/03/2023 07/04/2023 BUpivacaine (pf) (Marcaine) (2.5 mg/mL) 0.25% injection (CANCELED) PRN, Starting on Sun07/04/23 at 1144, Until Sun07/04/23 at 1626, Intra-Operative (Intra-Procedure), Routine 1144 (Given - Provid er: Emily Jasmine MD) midazolam (pf) (Versed) (1 mg/mL) injection 1 mg (CANCELED) 1 mg, Intravenous, EVERY 5 MIN PRN, Starting on Sun07/04/23 at 0824, Until Sun07/04/23 at 1322, Sleep, or prior to injection of local anesthetic, Hold for delirium/agitation. (Maximum dose 5 mg)., Intra-Operative (Intra-Procedure), Routine 0912 (Given - Provid er: Candice Kendall RN) oxyCODONE (Roxicodone) tablet 5 mg 5 mg, Oral, ONCE PRN, 1 dose, Starting on Sun07/04/23 at 0921, Until Sun07/04/23 at 1626, Pain, Routine vancomycin (Vancocin) injection (CANCELED) PRN, Starting on Sun07/04/23 at 1010, Until Sun07/04/23 at 1626, Intra-Operative (Intra-Procedure), Routine 1010 (Given - Provid er: Emily Jasmine MD - Comment: Mixed with 250 mL saline for antibiotic soak) documented in this encounter Care Teams Station Helper Relationship Specialty Start Date End Date Andriyhoward TD Clement [address] [place] [address] PCP - General Family Medicine 05/09/23 documented as of this encounter
--- OUTSIDE RECORDS SUMMARY | 2023-12-28 01:56 | XMS_ITS | Encounter Summary ---
Author Organization [facility] [address] Care Team Providers Care Aviation Electrical Technician Name Role Phone Racqeul Madrigal APRN Primary Care Provider Encounter Details Date Type Department Care Team (Latest Contact Info) Description 12/11/2023 Travel Social History Tobacco Use Types Packs/Day Years Used Date Smoking Tobacco: Never Smokeless Tobacco: Never Alcohol Use Standard Drinks/Week Comments Yes 3 (1 standard drink = 0.6 oz pur e alcohol) once per week IPV Inpatient Questions Answer Date Recorded Does Anyone Try to Keep You From Having Contact with Others or Doing Things Outside Your Home? no 07/04/2023 Feels Threatened by Someone no 030 09/2023 Feels Unsafe at Home or Work/School [...] on filedocumented in this encounter Care Teams Aviation Electrical Technician Relationship Specialty Start Date End Date Racquel Madrigal APRN [address] [place] [address] [address] [place] [address] PCP - General Family Medicine 05/09/23 documented as of this encounter
--- OUTSIDE RECORDS SUMMARY | 2023-12-28 01:56 | XMS_ITS | Encounter Summary ---
Author Organization [facility] Address [address] [place] [address] Care Team Providers Care Stunt Person Name Role Phone Unavailable Primary Care Provider Unavailabl e Reason for Visit * Reason Onset Date Comments Appointment Related 06/14/2023 Encounter Details Date Type Department Care Team (Late st Contact Info) Description 06/14/2023 Telephone [facility] Audiology - [address] [address] Audiology, Sheet Metal Operator Appointment Related Social History Tobacco Use Types Packs/Day Years Used Date Smoking Tobacco: Never Assessed Interpersonal Safety Answer Date Record ed Physically Hurt Never 04/02/2020 Verbally Threaten Not on file 04/02/2020 Sex and Gender Information Value Date Recorded Sex Assigned at Not on file Gender Identity Not on file Sexual Orientation Not on file documented as of this encounter Miscellaneous Notes * Telephone Encounter - Jyothi Proctor - 06/14/2023 1359 EST Patient's hearing aids aren't functioning. He has changed the filters. He will mail the BRISENO's to us as he [place] 2 hours away. He will insure them. He would like them sent out. We will assess when we receive them. He will pickling drum operator when they are ready. Jyothi Proctor documented in this encounter Plan of Treatment Not on file documented as of this encounter Visit Diagnoses Not on filedocumented in this encounter
--- OUTSIDE RECORDS SUMMARY | 2023-12-28 01:56 | XMS_ITS | Encounter Summary ---
[place] [address] Care Team Providers Care Communication And Outreach Manager Name Role Phone Racquel Madrigal APRN Primary Care Provider Encounter Details Date Type Department Care Team (Latest Contact Info) Description 06/08/2023 Travel Social History Tobacco Use Types Packs/Day [...] on filedocumented in this encounter Care Teams Communication And Outreach Manager Relationship Specialty Start Date End Date Racquel Madrigal APRN [address] [place] [address] [address] [place] [address] PCP - General Family Medicine 05/09/23 documented as of this encounter
--- OUTSIDE RECORDS SUMMARY | 2023-12-28 01:56 | XMS_ITS | Encounter Summary ---
Author Organization [facility] Address [facility] [place] [address] Care Team Providers Care Manager Stars Name Role Phone Racquel Madrigal APRN Primary Care Provider [phone] Reason for Visit * Reason Comments Post Op 07-04-23 RIGHT KNEE AC L/MLC AND MMT REPAIR Encounter Details Date Type Department Care Team (Late st Contact Info) Description 07/24/2023 1:20 PM EDT Office [place] [address] Aniket Jasmine MD [facility] [place] [address] Injury of medial collateral ligament (MCL) of knee Social History Tobacco Use Types Packs/Day Years [...] Pulse 88 07/24/2023 12:56 PM EDT Temperature - - Respiratory Rate - - Oxygen Saturation - - Inhaled Oxygen Concentration - - Weight 70.3 kg (155 lb) 07/24/2023 12:5 6 PM EDT from previous encounter, on crutches Height 175.3 cm (5' 9) 07/24/2023 12:5 6 PM EDT Body Mass Index 22.89 07/24/2023 12:56 PM EDT documented in this encounter Progress Notes * Aniket Jasmine MD - 07/24/2023 1:20 PM EDT Case Date: 07/04/2023 Postoperative diagnosis: ACL/MLC/MMT/LMT tear, Right knee Procedure(s) (LRB): ARTHROSCOPIC ANTERIOR CRUCIATE LIGAMENT REPAIR (WRVU 14.3) (Right) MODIFIER PATELLA TENDON ALLOGRAFT BONE TENDON BONE (N/A) LIGAMENTOUS REPAIR, KNEE, COLLATERAL (WRVU 9.08) (Right) ARTHROSCOPY WITH MENISCECTOMY, LAT.& MEDIAL WITH SHAVING (WRVU 7.39) (Right) 3 weeks postop. Dami is doing well. Says his knee aches but no significant pain. Never took any narcotics. Has been working with PT once a week. On exam his incisions are beautifully healed. He still has an effusion. He comes to just shy of full extension. Flexes to about 70 degrees today. He tells me he gets to 90 in PT. His knee is stable to Felipe's testing. Stable to valgus stress. A/P: So far so good. We discussed continuing to work aggressively on range of motion. Goal is for full range of motion at his next visit. Follow-up with me in 4 to 5 weeks. He can weight-bear as tolerated with his leg locked in extension. No limits on range of motion whennot weightbearing. documented in this encounter Plan of Treatment Not on file documented as of this encounter Visit Diagnoses Diagnosis Injury of medial collateral ligament (MCL) of knee documented in this encounter Care Teams Manager Stars Relationship Specialty Start Date End Date Racquel Madrigal APRN [address] [place] [address] PCP - General Family Medicine 05/09/23 documented as of this encounter
--- OUTSIDE RECORDS SUMMARY | 2023-12-28 01:56 | XMS_ITS | Referral Summary ---
Author Organization [facility] Address [address] [place] [address] Care Team Providers Care Escrow Secretary Name Role Phone Unavailable Primary Care Provider [...] Orientation Not on file Plan of Treatment Not on file
--- OUTSIDE RECORDS SUMMARY | 2023-12-28 01:56 | XMS_ITS | Encounter Summary ---
Author Organization [facility] Address [address] [place] [address] Care Team Providers Care Tour Narrator Name Role Phone Unavailable Primary Care Provider Unavailabl e Encounter Details Date Type Department Care Team (Late st Contact Info) Description 05/05/2022 Lab Requisition [facility] Pathology & Laboratory Medicine - [address] [address] Outr Resulting Lab, Provider Social History Tobacco [...] Procedure Name Priority Date/Time Associated Diagnosis Comments CHLAMYDIA/N. GONORRHOEAE AMPLIFIED NUCLEIC ACID Routine 05/05/2022 11:50 EST documented in this encounter Results * CHLAMYDIA/N. GONORRHOEAE AMPLIFIED RNA (05/05/2022 11:50 EST) Neisseria gonorrhoeae Result Negative Negative 05/07/2022 13:30 EST [facility] Chlamydia trachomatis Result Negative Negative 05/07/2022 13:30 EST [facility] Urine URINE / Unknown 05/05/2022 1 1:50 EST 05/06/2022 13:40 EST Provider Outr Resulting Lab MICROBIOLOGY - GENERAL ORDERABLES [facility] [address] [place] [id number] documented in this encounter Visit Diagnoses Not on filedocumented in this encounter
--- OUTSIDE RECORDS SUMMARY | 2023-12-28 01:56 | XMS_ITS | Encounter Summary ---
Author Organization [facility] [place] [address] Care Team Providers Care Stem Processing Machine Operator Name Role Phone Racquel Madrigal APRN Primary Care Provider [phone] Reason for Visit * Reason Comments Follow-up NXR S/P R KNEE AC L/MCL AND MMT REPAIR DOS 07/04/2023 (SMITA Encounter Details Date Type Department Care Team (Late st Contact Info) Description 08/24/2023 2:20 PM EDT Office [place] [address] Aniket Jasmine MD [facility] [place] [address] Rupture of anterior cruciate ligament of right knee, initial encounter Social History Tobacco Use Types Packs/Day Years Used Date Smoking Tobacco: Never Smokeless Tobacco: Never Alcohol Use Standard Drinks/Week Comments Yes 3 (1 standard drink = 0.6 oz pur e alcohol) once per week [facility] Inpatient Questions Answer Date Recorded Does [...] Progress Notes * Aniket Jasmine MD - 08/24/2023 2:20 PM EDT Case Date: 07/04/2023 Postoperative diagnosis: ACL/MLC/MMT/LMT tear, Right knee Procedure(s) (LRB): ARTHROSCOPIC ANTERIOR CRUCIATE LIGAMENT REPAIR (WRVU 14.3) (Right) MODIFIER PATELLA TENDON ALLOGRAFT BONE TENDON BONE (N/A) LIGAMENTOUS REPAIR, KNEE, COLLATERAL (WRVU 9.08) (Right) ARTHROSCOPY WITH MENISCECTOMY, LAT.& MEDIAL WITH SHAVING (WRVU 7.39) (Right) 7+ weeks post-op doing very well. Pain minimal. Has been able to ambulate crutch free and even on uneven ground without trouble. Right knee with nicely healed incisions. Still trace to mild effusion. Good quad control. Full extension. Flexion to about 105 today. Stable Ia Felipe's. Stable to valgus full extension and 30 degrees of flexion. A/P: So far so good. We discussed his progression. I offered him a hinged knee sleeve. He declined.I offered him follow-up. He declined. He will continue to progress per the PT protocol. Happy to see him back at any time should he have any difficulties. documented in this encounter Plan of Treatment Not on file documented as of this encounter Visit Diagnoses Diagnosis Rupture of anterior cruciate ligament of right knee, initial encounter documented in this encounter Care Teams Stem Processing Machine Operator Relationship Specialty Start Date End Date Racquel Madrigal APRN [address] [place] [address] PCP - General Family Medicine 05/09/23 documented as of this encounter
--- OUTSIDE RECORDS SUMMARY | 2023-12-28 01:56 | XMS_ITS | Encounter Summary ---
Author Organization [facility] Address [address] [place] [address] Care Team Providers Care Adjunct Professor Name Role Phone Unavailable Primary Care Provider Unavailabl e Encounter Details Date Type Department Care Team (Late st Contact Info) Description 04/19/2020 14:15 EST Audiology [facility] Audiology - [address] [id number] Danika Vazquez, AuD [address] [place] [id number] Sensorineural hearing loss, unilateral, right ear, with restricted hearing on the contralateral side; Tinnitus of both ears Social History Tobacco [...] Progress Notes * Danika Vazquez, Zoey - 04/19/2020 1415 EST Adult Hearing Aid Fitting Name: Dami Pisano Address: [address] [facility] [address] Date of : 1970 Primary Physician: No primary care provider on file. Diagnosis: Sensorineural hearing loss asymmetric, right ear poorer and tinnitus bilateral Date of Service: 04/19/2020 Total Treatment Time: 65 minutes Name of Provider: Taras Bonilla SUBJECTIVE: If these are not good for me, do I have other options? OBJECTIVE: History/Interview: Dami Pisano, 49 y.o., was seen today for a hearing aid fitting. He has a progressive asymmetric sensorineural hearing loss, right ear poorer, and constant tinnitus in both ears, which is more prominent on the right. He has briefly tried amplification in the past while living in [place]. The patient was fit with the following hearing aid(s): Left Hearing Aid: Make/Model: Oticon Opn S2 miniRITE-T Style: Aqpcremq-gi-aws-Ear (RITE): Speaker size: 1-85, Dome size: 8mm open BRISENO serial number: [id number] Retention Tail: Yes Battery size: Rechargeable [place] Ion Color: [place] Brown Wax prevention: ProWax miniFit Fitting formula: VAC+ Programs: None Volume control: Disabled Real Ear Verification (REM): Performed 04/19/2020 Warranty end date: (BRISENO): 05/09/2023 Right Hearing Aid: Make/Model: Oticon CROS Style: Uxcvumts-la-wcx-Ear (RITE): Speaker size: 1-60, Dome size: 8mm open BRISENO serial number: [id number] Retention Tail: Yes Battery size: Rechargeable [place] Ion Color: [place] Brown Wax prevention: ProWax miniFit Fitting formula: VAC+ Programs: None Volume control: Disabled Real Ear Verification (REM): Not performed - CROS device Warranty end date: (BRISENO): 05/09/2023 Linked equipment: None Director Of Online Merchandising set hearing aid controls/programs based on: Patient's audiogram and communication needsand Actual probe microphone measurements Director Of Online Merchandising checked hearing aid and/or earmold fit and determined it to be: Good Patient demonstrated correct battery insertion and was warned about battery ingestion: Yes Patient demonstrated correct insertion/removal of hearing aid/earmold and use of hearing aid controls: Yes Patient demonstrated understanding of hearing aid/earmold care: Yes Desiccant/other care and use products dispensed: Yes Patient demonstrated telephone use: Yes Patient demonstrated understanding of feedback, occlusion, and schedule of use: Yes Patient demonstrated understanding of warranty/repair information sheet: Yes Programming changes: Decreased gain to adaptation level 1 on the left after performing real ear measures Patient/Family/Associate education: Patient/family education was provided regarding hearing aid programming settings and function, care and maintenance of the hearing aids, repair/warranty information, realistic expectations and appropriate wear schedule. Method of education: Verbal, Written and Demonstration Barriers to education: None The patient was able to verbalize understanding of the information and was able to return demonstration ASSESSMENT: The patient exhibited no issues with manipulation of the devices or the batteries during appointment today. He inquired about battery replacement and rechargeable battery option. He was advised that these batteries will need to be replaced quite often because of the constant communication between the CROS and the hearing aid side. He was informed that the rechargeable battery is an option if he decides to forgo use of CROS device for right ear and use hearing aid in the left ear only. The patient was advised of realistic expectations and wear schedule with these aids. He has coverage for hearing aids through his [place] Medicaid plan so all charges for today's visit will be billed to his insurance. He was provided with an MNF to provide to pharmacy for batteries through his insurance. PLAN: The patient should follow the care and use instructions provided with the hearing aids and return to this clinic for follow-up services on 05/04/2019. Taras Bonilla 04/19/2020 15:40 documented in this encounter Plan of Treatment Not on file documented as of this encounter Visit Diagnoses Diagnosis Sensorineural hearing loss, unilateral, right ear, with restricted hearing on the contralateral side Tinnitus of both ears Unspecified tinnitus documented in this encounter
--- OUTSIDE RECORDS SUMMARY | 2023-12-28 01:56 | XMS_ITS | Encounter Summary ---
Author Organization [facility] Address [address] [place] [address] Care Team Providers Care Wine And Spirits Clerk Name Role Phone Unavailable Primary Care Provider Unavailabl e Encounter Details Date Type Department Care Team (Late st Contact Info) Description 03/09/2022 Documentation Visit [facility] Audiology - [address] [id number] Audiology, Spiral Gear Generator Social History Tobacco Use Types Packs/Day Years Used Date Smoking Tobacco: Never Assessed Interpersonal Safety Answer Date Record ed Physically Hurt Never 04/02/2020 Verbally Threaten Not on file 04/02/2020 Sex and Gender Information Value Date Recorded Sex Assigned at Not on file Gender Identity Not on file Sexual Orientation Not on file documented as of this encounter Progress Notes * Jyothi Proctor - 03/09/2022 1415 EST Patient dropped off his hearing aid/CROS. Sending both out for repair. Hearing aid is . Both under warranty. Will call patient when hearing aid/CROS come back from repair. Jyothi Proctor documented in this encounter Plan of Treatment Not on file documented as of this encounter Visit Diagnoses Not on filedocumented in this encounter
--- OUTSIDE RECORDS SUMMARY | 2023-12-28 01:56 | XMS_ITS | Encounter Summary ---
Author Organization [facility] Address [address] [place] [address] Care Team Providers Care Equipment Man Name Role Phone Unavailable Primary Care Provider Unavailabl e Encounter Details Date Type Department Care Team (Late st Contact Info) Description 06/15/2021 8:30 EST Audiology [facility] Audiology - [address] [id number] Danika Vazquez AuD [address] [place] [phone] Sensorineural hearing loss, unilateral, right ear, with [...] Progress Notes * Danika Vazquez AuD - 06/15/2021 0830 EST Adult Hearing Aid Follow-up Name: Dami Pisano Address: [address] [facility] [address] Date of : 1970 Primary Physician: No primary care provider on file. Diagnosis: Sensorineural hearing loss asymmetric, right ear poorer??and tinnitus bilateral Date of Service: 06/15/2021 Total Treatment Time: 20 minutes Name of Provider: Taras Bonilla SUBJECTIVE: My hearing aids haven't been working. OBJECTIVE: History/Interview: Dami Pisano, 50 y.o., was seen today for a hearing aid follow-up. He reported that his hearing aids have not been working well for approximately the past month. He explained that since he has the BiCROS system, he is uncertain if it is one device or both. He has not attempted toreplace the wax filters Otoscopic Evaluation: Left Ear: Minimal cerumen visualized in ear canal Right Ear: Clear ear canal The patient presented with the following hearing aid(s): Left Hearing Aid: ?Make/Model: Oticon??Opn S2 miniRITE-T ?Style: Nedclaos-ho-tmz-Ear (RITE): ??Speaker size: ??1-85, Dome size:?8mm open ?BRISENO serial number: ??[id number] ?Retention Tail: Yes ?Battery size: Rechargeable [place] Ion ?Color: Lincoln Brown ?Wax prevention: ProWax miniFit ?Fitting formula: VAC+ ?Programs: None ?Volume control: Enabled ?Real Ear Verification (REM): Performed 04/19/2020 ?Warranty end date: (BRISENO): 05/09/2023? Right Hearing Aid: ?Make/Model: Oticon??CROS?Style: Daxtxxsr-td-wqx-Ear (RITE): ??Speaker size: ??1-60, Dome size:?8mm open ?BRISENO serial number: ??[id number] ?Retention Tail: Yes ?Battery size: Rechargeable [place] Ion ?Color: Lincoln Brown ?Wax prevention: ProWax miniFit ?Fitting formula: VAC+ ?Programs: Mute with long press ?Volume control: Enabled ?Real Ear Verification (REM): Not performed - CROS device?Warranty end date: (BRISENO): 05/09/2023? Linked equipment:?None? Date of fittin04/19/2020 Dispensary: [facility] Visual check: Occluded with cerumen or debris Listening check: Intermittent sound even after replacing wax filter and piece worker on left aid Programming Adjustments: No programming adjustments were made today Patient/Family/Associate Education: Patient/family education was provided regarding troubleshootingand plan. Method of education: Verbal and demonstration Barriers to education: None The patient was able to verbalize understanding of the information and was able to return demonstration ASSESSMENT: The hearing aid issue could not be addressed in the office so the patient was informed that the problem requires that they be sent to the candle molder for repair. He was advised that although it is suspected that the left aid is malfunctioning, it is recommended that both devices be sent out since they are both under warranty and he cannot use the right aid without the left one anyway. He indicated agreement with this plan. The patient was instructed regarding how to change wax filters in case that is the issue in the future. PLAN: The patient will be contacted for pickup once the devices return from repair by candle molder. Taras Bonilla 06/15/2021 8:57 documented in this encounter Plan of Treatment Not on file documented as of this encounter Visit Diagnoses Diagnosis Sensorineural hearing loss, unilateral, right ear, with restricted hearing on the contralateral side Tinnitus of both ears Unspecified tinnitus documented in this encounter
--- OUTSIDE RECORDS SUMMARY | 2023-12-28 01:56 | XMS_ITS | Encounter Summary ---
Author Organization [facility] Address [address] [place] [address] Care Team Providers Care Cotton Picker Name Role Phone Unavailable Primary Care Provider Unavailabl e Encounter Details Date Type Department Care Team (Late st Contact Info) Description 12/24/2020 Lab Requisition [facility] Pathology & Laboratory Medicine - [address] [address] Outr Resulting Lab, Provider Social History Tobacco [...] Procedure Name Priority Date/Time Associated Diagnosis Comments PSA TOTAL, DIAGNOSTIC Routine 12/24/2020 9:44 EDT documented in this encounter Results * PSA TOTAL, DIAGNOSTIC (12/24/2020 9:44 EDT) PSA 0.8 0.0 - 3.5 ng/mL 12/24/2020 22:23 EDT [facility] Blood VENOUS BLOOD / Unknown 12/24/2020 9:44 EDT 12/24/2020 21:13 EDT Narrative [facility] - 12/24/2020 22:23 EDT NOTE: Serum PSA concentration should not be interpreted as absolute evidence for the presence or absence of malignant disease. Assayed on Siemens ADVIA [employer]ax In[employer]aur XPT using chemiluminescent technology.??Values obtained by using different assay methods cannot be used interchangeably. Provider Outr Resulting Lab CHEMISTRY & BLOOD GAS ORDERABLES [facility] [address] [place] [address] documented in this encounter Visit Diagnoses Not on filedocumented in this encounter
--- OUTSIDE RECORDS SUMMARY | 2023-12-28 01:56 | XMS_ITS | Encounter Summary ---
[place] [address] Care Team Providers Care Sample Stitcher Name Role Phone Racquel Madrigal APRN Primary Care Provider Encounter Details Date Type Department Care Team (Latest Contact Info) Description 06/05/2023 Travel Social History Tobacco Use Types Packs/Day [...] on filedocumented in this encounter Care Teams Sample Stitcher Relationship Specialty Start Date End Date Racquel Madrigal APRN [address] [place] [address] [address] [place] [address] PCP - General Family Medicine 05/09/23 documented as of this encounter
--- OUTSIDE RECORDS SUMMARY | 2023-12-28 01:56 | XMS_ITS | Encounter Summary ---
[facility] [place] [address] Care Team Providers Care Land Classifier Name Role Phone Racquel Madrigal APRN Primary Care Provider Reason for Visit * Reason Comments Establish Care Right knee injury DO I 04/12/23 * Consultation (Routine) - Authorized Specialty Diagnoses / Procedures Referred By Arnel jacobs Referred To Contact Orthopaedics Diagnoses Complete tear of medial collateral ligament of knee, right, initial encounter Rupture of anterior cruciate ligament of right knee, initial encounter Acute medial meniscal injury of right knee, initial encounter Amol Lawton MD [address] [place] [address] [facility] [address] [place] [phone] Referral ID Status Reason Start Date Expiration Date Visits Requested Visits Authorized [id number] Authorized Consult, Test & Treat PCP Updated and/or Approved 05/09/2023 05/08/2024 6 6 Encounter Details Date Type Department Care Team (Late st Contact Info) Description 06/05/2023 1:00 PM EST Office Visit Orthopaedics at [address] [phone] Mikey Thapa MD [facility] [place] [address] Injury of medial collateral ligament (MCL) of [...] - Inhaled Oxygen Concentration - - Weight 75.8 kg (167 lb) 06/05/2023 1:02 PM EST m easured Height 177.8 cm (5' 10) 06/05/2023 1:02 PM EST Body Mass Index 23.96 06/05/2023 1:02 PM EST documented in this encounter Progress Notes * Mikey Thapa MD - 06/05/2023 1:00 PM EST Chief complaint: Right knee injury History of present illness: Dami Pisano is a 52 y.o. year-old male who injured his right knee over a month ago. This was when he was cross-country skiing. He notes a previous partial ACL injury. He saw Dr. Lawton at an [facility] who discussed possible surgical intervention for MRI confirmed proximal MCL injury, complete ACL rupture, and medial meniscal tear. We have the MRI confirming this. The patient wished to obtain a second opinion. He has been ambulating without assistive devices. His pain isminimal, but he finds that he cannot trust his knee and has pain when he does things such as descending stairs or stepping through snow. He is hopeful he can get a new knee with repair of his ACL, his MCL, and his meniscus. 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 Full extension to greater than 130 degrees of flexion. He has a positive endpoint to varus and valgus stress, but increased gapping with valgus stress at full extension and 30 degrees of flexion. He has a positive anterior drawer. He has no pain with palpation along the medial or lateral joint line, and indeed no manipulation of his knee causes pain. Negative Steinmann's test. Neurovascular intact in the right foot. Negative posterior drawer test. Imaging: Personal review of the patient's imaging reveals: X-rays show no significant joint space narrowing. His MRI from earlier this month shows a proximal MCL injury, no intact fibers of the ACL, and a medial meniscal tear. Overall cartilage appears to beintact. Assessment: 52 y.o. year-old male right knee MCL injury, ACL incompetence, and medial meniscal injury Plan: We discussed his situation. As I do not perform the potential surgery he is looking into, I have passed his information onto my colleague Dr. Jasmine. We discussed in general operative principles versus nonoperative treatment. Based on Dr. Jasmine's assessment, we can make suggestions moving forward. Follow up: PRN This plan was discussed with the patient and they are in agreement. All of the patient's questions were answered. The above dictation was made with voice recognition software documented in this encounter Plan of Treatment Not on file documented as of this encounter Visit Diagnoses Diagnosis Injury of medial collateral ligament (MCL) of knee documented in this encounter Care Teams Land Classifier Relationship Specialty Start Date End Date Racquel Madrigal APRN [address] [place] [address] PCP - General Family Medicine 05/09/23 documented as of this encounter
--- OUTSIDE RECORDS SUMMARY | 2023-12-28 01:56 | XMS_ITS | Encounter Summary ---
[place] [address] Care Team Providers Care Computer Operations Manager Name Role Phone Racquel Madrigal APRN Primary Care Provider Reason for Visit * Auth/Cert (Routine) Specialty [...] LIGAMENTOUS RECONSTRUCTION, KNEE, EXTRA ARTICULAR (WRVU 9.79) Aniket Jasmine MD [facility] [place] [address] [facility] Referral ID Status Reason Start Date Expiration Date Visits Re quested Visits Authorized [id number] 1 1 Encounter Details Date Type Department Care Team (Late st Contact Info) Description 07/04/2023 9:32 AM EST Anesthesia Event [facility]patient [place] [phone] Shirin Das MD [facility] [place] [address] Tameka Sherman CRNA [facility] [place] [address] Anesthesia Record Procedure Summary Procedure Name Responsible Anesthesiologist Anesthesia Start Time Anesthesia Stop Time ARTHROSCOPIC ANTERIOR CRUCIATE LIGAMENT REPAIR (WRVU 14.3) (Right: Knee) Shirin Das MD 07/04/23 0932 07/04/23 1205 Events Date Time Event Comment 07/04/2023 0908 0932 AN Verify 0932 Start 0932 An Start Data 0935 An Induction 0936 An Intubation 0939 Anesthesia Ready 1005 An Tourn Inflated 1006 Procedure Start 1156 An Tourn Deflated 1159 Procedure Stop 1202 an stop data 1203 Recovery or ICU Handoff Kimberlee ent care was transferred to the destination unit staff after review of the patient's medical history, current anesthetic/surgical status and plan, according to the Provider Handoff Checklist. 1205 Stop Meds Name Total fentaNYL 50 mcg IV Lidocaine 40 mg Propofol 300 mg Propofol INF 770.84 mg Dexamethasone 8 mg Ondansetron 8 mg ePHEDrine 10 mg BUpivacaine 0.5% 20 mL ceFAZolin (Ancef) (100 mg/mL) injection solution 2 g 2 g lactated ringers 1,000 mL * Agents Name O2 Sevoflurane (et) * Blood No blood administrations on file. Lines, Drains, and Airways Type Details Placement Removal Incision 07/04/23; 1006; Righ t; knee; arthroscopic punctures (specify) (3x punctures) 07/04/23 1006 by Aylin Rodriges RN PIV 07/04/23; 0849; kzbe-cbe-bmfpme catheter system; 20 gauge, 1 in length; metacarpal vein (top of hand), left; Anatomical Landmarks; cavalier; distraction, intradermal injection, tolerated well; 1; no longer indicated, catheter/device intact, site care per policy/procedure; 07/04/23; 1300 07/04/23 0849 by Candice Kendall RN 07/04/23 1300 by Grace Harvey RN Supraglottic Mask Ventilation: No t Attempted (0); LMA Type: iGel; LMA Size: 4; Inserted by: Tameka Sherman CRNA; Removal Date: 07/04/23; Removal Time: 1225 07/04/23 0936 by Tameka Sherman CRNA 07/04/23 1225 by Grace Harvey, RN documented in this encounter Social History Tobacco Use Types Packs/Day [...] on file documented as of this encounter OR Notes * Anesthesia Postprocedure Evaluation - Shirin Das MD - 07/04/2023 1:42 PM EST Department of Anesthesiology Post-procedure Note Patient: Dami Pisano Procedure Summary Date: 07/04/23 Room / Location: [facility] [address] [place] [address] OSC Anesthesia Start: 931 Anesthesia Stop: 120 Procedures: ARTHROSCOPIC ANTERIOR CRUCIATE LIGAMENT REPAIR (WRVU 14.3) (Right: Knee) MODIFIER PATELLA TENDON ALLOGRAFT BONE TENDON BONE LIGAMENTOUS REPAIR, KNEE, COLLATERAL (WRVU 9.08) (Right: Knee) ARTHROSCOPY WITH MENISCECTOMY, LAT.& MEDIAL WITH SHAVING (WRVU 7.39) (Right: Knee) Diagnosis: Rupture of anterior cruciate ligament of right knee, initial encounter (ACL/MLC/MMT tear, Right knee) Surgeons: Aniket Jasmine MD Responsible Provider: Shirin Das MD Anesthesia Type: general ASA Status: 2 All Anesthesia Providers: Anesthesiologist: Shirin Das MD SENIOR RESEARCH ENGINEER: Tameka Sherman CRNA Vitals Value Taken Time BP 121/68 07/04/23 1245 Temp 36.2 ??C (97.2 ??F) 07/04/23 1203 Pulse 70 07/04/23 1301 Resp 16 07/04/23 1225 SpO2 96 % 07/04/23 1301 Pain Level 0 07/04/23 1300 Vitals shown include unfiled device data. Patient Location: PACU/[facility] Level of Consciousness: Awake and Alert Pain Management: Satisfactory Analgesia PONV: None Cardiovascular Status: At Baseline Respiratory Status: At Baseline Postoperative Fluid Status: Possible Anesthetic Complications: NONE apparent at time of evaluation Final Primary Anesthesia Type: General (The anesthetic type performed was the same as planned.) Comments: * Anesthesia Procedure Notes - Shirin Das MD - 07/04/2023 9:18 AM ESTAssociated Order(s): Anesthesia Block Anesthesia Block Date/Time: 07/04/2023 9:12 AM Start Time: 07/04/2023 9:12 AM End Time: 07/04/2023 9:16 AM The patient was greeted; the risks and benefits of the procedure were reviewed. Indication: Post-op Pain Control Post-op pain management at the request of surgeon. Block Type: Adductor canal block Laterality: Right Position: Supine Prep: Chlorhexidine, patient draped and mask, cap, sterile gloves, hand hygeine Skin Anesthetic: Skin Anesthetic: Lidocaine 1% dose: 5 Block Technique: SonoPlex 21 10 cm Ultrasound Guided: YES and in-plane Ultrasound Image Saved Ultrasound guidance was used to identify the targeted neuronal structure. Ultrasound was also used to identify needle position and to identify tissue (bone, muscle, and blood vessels) to prevent inadvertent intraneural or intravascular needle placement and injection. The spread of local anesthetic was confirmed with live ultrasound imaging. Single-Shot: Single-shot Local Anesthetic Volume(s) Injected for Nerve Block: BUpivacaine 0.5% - Perineural 20 mL - 07/04/2023 9:12:00 AM Performed by: Attending Physician: Shirin Das MD Authorized by: Shirin Das MD * Anesthesia Preprocedure Evaluation - Shirin Das MD - 07/03/2023 1:39 PM EST Pre-Anesthesia Evaluation for: Dami veronica 52 y.o. male. Procedure(s): ARTHROSCOPIC ANTERIOR CRUCIATE LIGAMENT REPAIR (WRVU 14.3) MODIFIER PATELLA TENDON ALLOGRAFT BONE TENDON BONE LIGAMENTOUS RECONSTRUCTION, KNEE, EXTRA ARTICULAR (WRVU 9.79) Patient Active Problem List Diagnosis Date Noted ??? Rupture of anterior cruciate ligament of right knee 06/11/2023 ??? Injury of medial collateral ligament (MCL) of knee 06/05/2023 No past medical history on file. No past surgical history on file. Social History Tobacco Use ??? Smoking status: Never ??? Smokeless tobacco: Never Substance Use Topics ??? Alcohol use: Yes Alcohol/week: 3.0 - 4.0 standard drinks of alcohol Types: 3 - 4 Cans of beer per week Comment: once per week Social History Substance and Sexual Activity Drug Use Not Currently ??? Types: Marijuana No Known Allergies Medications: MAR and/or home medications have been reviewed. Physical Exam: Preprocedure Vitals Current as of 07/03/23 1339 No BP, pulse, respiration, SpO2, or temperature recorded. Height: 175.3 cm (5' 9) (06/08/23) Weight: 74.8 kg (165 lb) (06/08/23) BMI: 24.36 IBW: 70.7 kg (155 lb 15.1 oz) Airway Assessment: Mallampati: III TM distance: >3 FB Neck ROM: full Cardiovascular Assessment: Rhythm: regular Rate: normal Pulmonary Assessment: unlabored breathing Dental Assessment: - normal exam Misc Assessment: IV access: Peripheral line Last Filed Perioperative Cognitive Screening None Anesthesia Plan: ASA 2 general, with a(n) intravenous induction Healthy 52 yo, 74 kg patient presenting for right ACL repair. No anesthesia records. No allergies. NPO. No GERD sxs. Did have a cold 10 days ago and has some residual post nasal drip but no other symptoms Plan: preop AC block, GA/LMA Region - Other Informed Consent: Anesthetic plan and risks discussed with patient. Plan discussed with SENIOR RESEARCH ENGINEER and attending. Anesthesia Screening documented in this encounter Plan of Treatment Not on file documented as of this encounter Procedures Procedure Name Priority Date/Time Associated Diagnosis Comments ANESTHESIA BLOCK Routine 07/04/2023 9:12 AM EST documented in this encounter Results * Anesthesia Block (07/04/2023 9:12 AM EST) Narrative Shirin Das MD - 07/04/2023 9:12 AM EST Shirin Das MD ? 07/04/2023 ??9:18 AM Anesthesia Block Date/Time: 07/04/2023 9:12 AM Start Time: ??07/04/2023 9:12 AM End Time: ??07/04/2023 9:16 AM The patient was greeted; the risks and benefits of the procedure were reviewed. ?? Indication: ??Post-op Pain Control Post-op pain management at the request of surgeon. ?? Block Type: ??Adductor canal block Laterality: ??Right Position: ??Supine Prep: ??Chlorhexidine, patient draped and mask, cap, sterile gloves, hand hygeine Skin Anesthetic: ??Skin Anesthetic: ??Lidocaine 1% ??dose: ??5 Block Technique: ?? SonoPlex ?? 21 ?? 10 cm ??Ultrasound Guided: ??YES and in-plane ??Ultrasound Image Saved ?Ultrasound guidance was used to identify the targeted neuronal structure. Ultrasound was also used to identify needle position and to identify tissue (bone, muscle, and blood vessels) to prevent inadvertent intraneural or intravascular needle placement and injection. The spread of local anesthetic was confirmed with live ultrasound imaging. ?Single-Shot: ??Single-shot Local Anesthetic Volume(s) Injected for Nerve Block: ?? BUpivacaine 0.5% - Perineural 20 mL - 07/04/2023 9:12:00 AM Performed by: ?? Attending Physician: ? Shirin Das MD Authorized by: Shirin Das MD ?? Shirin Das MD TRANSVERSE ABDOMINAL MUSCLE SURGEON [facility] S documented in this encounter Visit Diagnoses Not on filedocumented in this encounter Administered Medications Inactive Administered Medications - up to 3 most recent administrations Medication Order MAR Action Action Date Dose Rate Site BUpivacaine (pf) (Marcaine) (5 mg/mL) 0.5% injection Perineural, Starting on Sun07/04/23 at 0912, Until Sun07/04/23 at 0912, Anesthesia Intra-op, Routine Given 07/04/2023 9:12 AM EST 20 mLs ceFAZolin (Ancef) (100 mg/mL) injection solution 2 g 2 g, Intravenous, ONCE, 1 dose, On Sun07/04/23 at 0845, Pre-op antibiotic to be given within 1 hour of incision To be prepared by and administered by Anesthesia. Reconstitute each ceFAZolin 1 gram vial with 10 mL of NS or SWFI = 100 mg/mL May inject IV without further dilution over 3 to 5 minutes., Intra-Operative (Intra-Procedure), Indication for (Active or Suspected): Prophylaxis Given 07/04/2023 9:39 AM EST 2 g dexAMETHasone (Decadron) injection Intravenous, PRN, Starting on Sun07/04/23 at 0939, Until Sun07/04/23 at 1206, Anesthesia Intra-op, Routine Given 07/04/2023 9:39 AM EST 8 mg ePHEDrine sulfate (5 mg/mL) multi-dose injection Intravenous, PRN, Starting on Sun07/04/23 at 1020, Until Sun07/04/23 at 1206, Anesthesia Intra-op, Routine Given 07/04/2023 10:41 AM EST 5 mg Given 07/04/2023 10:20 AM EST 5 mg fentaNYL (pf) (50 mcg/mL) multi-dose injection Intravenous, PRN, Starting on Sun07/04/23 at 1133, Until Sun07/04/23 at 1206, Anesthesia Intra-op, Routine Given 07/04/2023 11:49 AM EST 25 mcg Given 07/04/2023 11:33 AM EST 25 mcg lactated ringers infusion Intravenous, CONTINUOUS PRN, Starting on Sun07/04/23 at 0932, Until Sun07/04/23 at 1206, Anesthesia Intra-op New Bag 07/04/2023 11:54 AM EST New Bag 07/04/2023 9:32 AM EST lidocaine (pf) (Xylocaine) (20 mg/mL) 2% injection syringe Intravenous, PRN, Starting on Sun07/04/23 at 0935, Until Sun07/04/23 at 1206, Anesthesia Intra-op, Routine Given 07/04/2023 9:35 AM EST 40 mg ondansetron (pf) (Zofran) (2 mg/mL) injection Intravenous, PRN, Starting on Sun07/04/23 at 0939, Until Sun07/04/23 at 1206, Anesthesia Intra-op, Routine Given 07/04/2023 11:47 AM EST 4 mg Given 07/04/2023 9:39 AM EST 4 mg propofoL (Diprivan) (10 mg/mL) infusion Intravenous, CONTINUOUS PRN, Starting on Sun07/04/23 at 0937, Until Sun07/04/23 at 1206, Anesthesia Intra-op, Routine Rate/Dose Change 07/04/2023 10:48 AM EST 75 mcg/kg/min 31.635 mL/hr Rate/Dose Change 07/04/2023 10:20 AM EST 80 mcg/kg/min 33. 744 mL/hr New Bag 07/04/2023 9:37 AM EST 100 mcg/kg/min 42.18 mL/ hr propofoL (Diprivan) 10 mg/mL bolus injection (Anesthesia) Intravenous, PRN, Starting on Sun07/04/23 at 0935, Until Sun07/04/23 at 1206, Anesthesia Intra-op Given 07/04/2023 9:42 AM EST 50 mg Given 07/04/2023 9:37 AM EST 50 mg Given 07/04/2023 9:35 AM EST 200 mg documented in this encounter Care Teams Computer Operations Manager Relationship Specialty Start Date End Date Racquel Madrigal APRN [address] [place] [address] [address] [place] [address] PCP - General Family Medicine 05/09/23 documented as of this encounter
--- OUTSIDE RECORDS SUMMARY | 2023-12-28 01:56 | XMS_ITS | Encounter Summary ---
Author Organization [facility] [place] [address] Care Team Providers Care Dispensary Attendant Name Role Phone Racquel Madrigal APRN Primary Care Provider Encounter Details Date Type Department Care Team (Latest Contact Info) Description 08/24/2023 Travel Social History Tobacco Use Types Packs/Day [...] on filedocumented in this encounter Care Teams Dispensary Attendant Relationship Specialty Start Date End Date Racquel Madrigal APRN [address] [place] [address] [address] [place] [address] PCP - General Family Medicine 05/09/23 documented as of this encounter
--- OUTSIDE RECORDS SUMMARY | 2023-12-28 01:56 | XMS_ITS | Encounter Summary ---
Author Organization [facility] [place] [address] Care Team Providers Care Tail Board Man Name Role Phone Racquel Madrigal APRN Primary Care Provider [phone] Encounter Details Date Type Department Care Team (Latest Contact Info) Description 07/24/2023 Travel Social History Tobacco Use Types Packs/Day [...] on filedocumented in this encounter Care Teams Tail Board Man Relationship Specialty Start Date End Date Racquel Madrigal APRN [address] [place] [address] [address] [place] [address] PCP - General Family Medicine 05/09/23 documented as of this encounter
--- OUTSIDE RECORDS SUMMARY | 2023-12-28 01:56 | XMS_ITS | Encounter Summary ---
[place] [address] Care Team Providers Care Trust Clerk Name Role Phone Racquel Madrigal APRN Primary [...] EXTRA ARTICULAR (WRVU 9.79) Emily Jasmine MD [facility] [place] [address] [facility] Referral ID Status Reason Start Date Expiration Date Visits Re quested Visits Authorized [id number] 1 1 Encounter Details Date Type Department Care Team (Latest Contact Info) Description 07/04/2023 8:16 AM EST - 07/04/2023 1:21 PM [facility] Hospital Encounter [place] [address] Emily Jasmine MD [facility] [place] [address] Rupture of anterior cruciate ligament of right knee, initial encounter Discharge Disposition: Home Social History Tobacco Use Types Packs/Day Years [...] encounter Discharge Instructions * Discharge Instructions* Grace Harvey, RN - 07/04/2023 9:21 AM EST General [...] closest emergency room or call the hospital jig operator at [phone] and ask for physician electronic publishing specialist covering for your physician. Questions or problems after 5pm or on a weekend: Call the [facility] jig operator at and ask for the physician electronic publishing specialist covering for your doctor. Lower Extremity Nerve [...] after hours and ask for the anesthesiologist electronic publishing specialist. At 8:30 am you received 975 mg [...] is a short acting narcotic pain medication. [id number]-[id number] Tylenol (acetaminophen) should be taken in addition [...] important in helping to prevent this. An [id number]-[id number]-[id number] stool softener can also help prevent or [...] Center 07/24/2023 1:20 PM Emily Jasmine MD [facility] [address] [place] [address] If you have questions or concerns please contact our [facility] office Sunday through Sunday, 8 AM - [...] up one step. Put weight on hand irish moss bleacher of crutches, straighten uninvolved leg, and bring involved leg and crutches up on step. Descend stairs ???Down with the Bad?? : Come to the edge of the steps and place the crutches on the lower step. Bring the involved leg down to the step with the crutches. Put weight on the hand irish moss bleacher of crutches and bring uninvolved leg down [...] log senthome with sister for patient. 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 The plan was reviewed with the patient [...] PACU criteria. Rehabilitationwill be per a modified [facility] ACL pathway (while there was no meniscal [...] knee, initial encounter Knee Scope, Single Menisectomy ([id number]) 07/04/2023 9:32 AM EST Rupture of anterior cruciate ligament of right knee, initial encounter Repair Primary Torn Ligament/Capsule, Knee, Collateral ([id number]) 07/04/2023 9:32 AM EST Rupture of anterior cruciate ligament of right knee, initial encounter MODIFIER PATELLA TENDON ALLOGRAFT BONE TENDON BONE 07/04/2023 9:32 AM EST Rupture of anterior cruciate ligament of right knee, initial encounter Knee Scope, Aid Ant Cruciate Repair ([id number]) 07/04/2023 9:32 AM EST Rupture of anterior [...] Given 07/04/2023 8:39 AM EST 975 mg lactated ringers infusion 1,000 mL, at 100 mL/hr, Intravenous, CONTINUOUS, Starting on Sun07/04/23 at 0845, Until Sun07/04/23 at 1322, Day of Surgery (Day of Procedure) New Bag 07/04/2023 9:20 AM EST 1,000 mLs 100 mL/hr oxyCODONE (Roxicodone) tablet 5 mg 5 mg, Oral, ONCE PRN, 1 dose, Starting on Sun07/04/23 at 0921, Until Sun07/04/23 at 1626, Pain, Routine documented in this encounter Active and Recently Administered Medications Times are shown in EST. Scheduled Medication Order 07/02/2023 07/03/2023 07/04/2023 acetaminophen (Tylenol) tablet 975 mg (COMPLETED) 975 mg, Oral, ONCE, 1 dose, On Sun07/04/23 at 0845, Administer with a SIP of water only. Maximum dose of acetaminophen is 4,000 mg from all sources in 24 hours., Day of Surgery (Day of Procedure), Routine 08 (Given - Provid er: Candice Kendall RN) [...] (Intra-Procedure), Indication for (Active or Suspected): Prophylaxis 09 (Given - Provid er: Tameka Sherman CRNA) Continuous Medication Order 07/02/2023 07/03/2023 07/04/2023 lactated ringers infusion (CANCELED) 1,000 mL, at 100 mL/hr, Intravenous, CONTINUOUS, Starting on Sun07/04/23 at 0845, Until Sun07/04/23 at 1322, Day of Surgery (Day of Procedure) 09 (New Bag - Prov ider: Candice Kendall [...] soak) documented in this encounter Care Teams Trust Clerk Relationship Specialty Start Date End Date Denicedarren Racquel, TD [address] [place] [address] [address] [place] [address] PCP - General Family Medicine 05/09/23 documented as of this encounter
[2023-12-28 12:36] LABS: Anion Gap 10.7 mmol/L (3-11); BUN 15 mg/dL (7-18); CO2 25.3 mmol/L (21.0-32.0); Chloride 103 mmol/L (98-107); Estimated GFR 88.88 (mL/min/1.73m2); Glucose 130 mg/dL (74-106); Potassium 3.9 mmol/L (3.5-5.1); Sodium 139 mmol/L (136-145)
[2023-12-28 19:13] LABS: Hepatitis C Ab w Rflx HCV PCR Negative (Negative)
== END 2023-12-28 01:49 | disposition home or self-care (01) ==
LOC: LOS 01:49
PROVIDERS: PCP Nurse Practitioner Family; Visit Provider Nurse Practitioner Family
DX: Z00.00 Encounter for general adult medical examination without abnormal findings (principal); Z12.5 Encounter for screening for malignant neoplasm of prostate
CPT/HCPCS: 36415; 80048; 84153; 86803

== ENCOUNTER 2024-05-22 03:50 | Outpatient (CLI) | payer MEDICAID, SELFPAY ==
[2024-05-22 13:06] LABS: Anion Gap 5.8 mmol/L (3-11); BUN 15 mg/dL (7-18); CO2 30.2 mmol/L (21.0-32.0); Calcium 9.5 mg/dL (8.5-10.1); Chloride 106 mmol/L (98-107); Estimated GFR 88.88 (mL/min/1.73m2); Glucose 105 mg/dL (74-106); Sodium 142 mmol/L (136-145)
[2024-05-26 19:31] LABS: Testosterone, Total 378 ng/dL (240-950)
== END 2024-05-22 03:51 | disposition home or self-care (01) ==
LOC: LOS 03:50
PROVIDERS: PCP Nurse Practitioner Family; Visit Provider Urology
DX: N40.1 Benign prostatic hyperplasia with lower urinary tract symptoms (principal); N20.0 Calculus of kidney; R68.82 Decreased libido
CPT/HCPCS: 36415; 80048; 84403; 84153

== ENCOUNTER 2024-07-18 00:13 | Outpatient (CLI) | payer MEDICAID, SELFPAY ==
--- NOTE | 2024-07-18 07:00 | DI.MRI_ITS ---
Exam(s) MR IAC BRAIN WO/W EXAM: MR IAC BRAIN WO/W CLINICAL HISTORY: vertigo, hearing loss, ? neuroma,r42,h91.90. TECHNIQUE: Multiplanar multisequence MRI of the brain and internal auditory canals was performed. CONTRAST MATERIAL: IV Contrast: 14 mL of Dotarem contrast administered. COMPARISON: None FINDINGS: VENTRICLES AND EXTRA AXIAL SPACES: Normal in size and morphology for the patient's age. HEMORRHAGE: None. CEREBRAL PARENCHYMA: No focus of restricted diffusion to suggest acute infarct. No space-occupying le xavier identified. No abnormal high signal lesions in the white matter. MIDLINE SHIFT: None. BRAINSTEM/CEREBELLUM: Normal. CALVARIUM: Normal. ENHANCEMENT: No suspicious enhancement identified. VISUALIZED PARANASAL SINUSES/MASTOIDS: Clear. ORBITS: Unremarkable. IAC/CP ANGLE: The internal auditory canals are within normal limits. No evidence of an acoustic neur jeana. The cerebellar pontine angles are unremarkable. No enhancing lesions are seen. Visualized porti ons of the cranial nerves appear within normal limits. IMPRESSION: Unremarkable MRI of the brain and internal auditory canals. No evidence of acoustic neuroma or othe r CP angle mass. DATA REPOSITORY:
[2024-07-18] MEDS: Gadoterate meglumine 20 ML SYRINGE 14 ML IVP (13:21)
[2024-07-18] MEDS: Normal Saline Flush 10 ML SYR IVP (13:22)
== END 2024-07-18 00:33 ==
LOC: DI 00:13
PROVIDERS: PCP Nurse Practitioner Family; Visit Provider Nurse Practitioner Family
DX: R42 Dizziness and giddiness (principal)
CPT/HCPCS: 70553

== ENCOUNTER 2024-10-01 02:44 | Outpatient (CLI) | payer MEDICAID, SELFPAY ==
[2024-10-01 12:27] LABS: Calculated LDL 141 mg/dL (<100); Cholesterol 218 mg/dL (<200); HDL Cholesterol 58 mg/dL (>or=40); Triglyceride 99 mg/dL (<150)
[2024-10-01 19:25] LABS: HIV-1/2 Ag & Ab Screen Negative (Negative)
[2024-10-01 19:34] LABS: Hep B Surface Ab Positive (See Note); Hepatitis B Core Antibody Negative (Negative); Hepatitis B Surface Antigen Negative (Negative)
== END 2024-10-01 02:45 | disposition home or self-care (01) ==
LOC: LOS 02:44
PROVIDERS: PCP Nurse Practitioner Family; Visit Provider Nurse Practitioner Family
DX: Z11.4 Encounter for screening for human immunodeficiency virus [HIV] (principal); E78.5 Hyperlipidemia, unspecified; Z11.59 Encounter for screening for other viral diseases
CPT/HCPCS: 36415; 80061; 86704; 86706; 87340; 87389

== ENCOUNTER 2024-11-28 09:50 | Outpatient (CLI) | payer MEDICAID, SELFPAY ==
--- NOTE | 2024-11-28 09:45 | DI.RAD_ITS ---
Exam(s) XR THORACIC SPINE COMPLETE EXAM: XR THORACIC SPINE COMPLETE CLINICAL HISTORY: evaluate pathology M54.6 PAIN T SPINE. TECHNIQUE: 2D digital imaging was performed. COMPARISON: No exams were available for comparison FINDINGS: 3 views No evidence of vertebral compression fractures nor listhesis nor prominent disc space narrowing in the thoracic spinal column. There is also no scoliosis and no abnormal widening of the paraspinal lines. No osseous lesions. IMPRESSION: No significant osseous findings in the lumbosacral spinal column. DATA REPOSITORY: RADIATION DOSE DELIVERED:
--- NOTE | 2024-11-28 09:45 | DI.RAD_ITS ---
Exam(s) XR LUMBAR SPINE COMPLETE EXAM: XR LUMBAR SPINE COMPLETE CLINICAL HISTORY: eval pathology M54.50 LOW BACK PAIN. TECHNIQUE: 2D digital imaging was performed. COMPARISON: MR MR LUMBAR SPINE WO from 11/12/2019 FINDINGS: Five views There is no evidence of fracture, listhesis, nor pars interarticularis defects. There is moderate disc space narrowing at the L3-4 and L5-S1 levels and there is mild disc space narrowing at L4-5 and L2-3 levels. L1-2 and T12-L1 exhibit normal height. Facet joints appear unremarkable as do the sacroiliac joints. There is no scoliosis. No osseous lesions. Left-sided osteophytes noted at L 3-4 level. IMPRESSION: There is some disc space narrowing at multiple levels as described above. If clinically indicated follow-up MRI can be performed to determine if there has been progression when compared to the prior MRI scan performed 5 years ago on 11/12/2019. DATA REPOSITORY: RADIATION DOSE DELIVERED:
== END 2024-11-28 10:10 ==
LOC: DI 09:50
PROVIDERS: PCP Nurse Practitioner Family; Visit Provider Nurse Practitioner Family
DX: M54.6 Pain in thoracic spine (principal); M51.360 Other intervertebral disc degeneration, lumbar region with discogenic back pain only
CPT/HCPCS: 72072; 72110

== ENCOUNTER 2025-01-27 02:20 | Outpatient (CLI) | payer MEDICAID, SELFPAY ==
--- NOTE | 2025-01-27 12:45 | DI.MRI_ITS ---
Exam(s) MR LUMBAR SPINE WO EXAM: MR LUMBAR SPINE WO CLINICAL HISTORY: DJD lumbar spine,CHRONIC LOW BACK PAIN,M47.816,M54.5,G89.29. TECHNIQUE: Multiplanar multisequence MRI of the Lumbar spine was performed. COMPARISON: MR MR LUMBAR SPINE WO from 11/12/2019 CR XR LUMBAR SPINE COMPLETE from 11/28/2024 FINDINGS: Conus medullaris is at normal level. There is no evidence of conus mass nor subjacent clumping of intrathecal nerve roots to suggest arachnoiditis. The distal thecal sac appears unremarkable.There is no evidence of Tarlov intrasacral cysts nor other significant findings within the sacral canal Bones:There are no fractures nor ominous osseous lesions in the lumbar vertebral bodies and visualized sacrum. There is no scoliosis in the lumbar spine. With respect to the individual levels... T11-T12: On the sagittal images there is a small disc herniation evident at this level which was also evident on the October 2019 study. This is difficult to accurately assess as the axial images only extend to the mid T12 level and do not cover this disc space. There does not appear to be significant spinal canal stenosis at this level nor foraminal stenosis. T12-L1: Unremarkable L1-2: Normal disc height and signal. No disc herniation nor central canal stenosis.No foraminal stenosis L2-3: There is mild uniform disc space narrowing. No significant disc herniation or central spinal canal stenosis. No significant facet arthropathy. There is no foraminal stenosis at this level. L3-4: This level exhibits chronic uniform moderate-advanced disc space narrowing. The size of the previously present central subligamentous disc herniation at this level has decreased. It exhibits less indentation of the anterior thecal sac on today's study.Central canal dimensions are lower normal. There is no significant foraminal stenosis on either side at this level. No significant facet arthropathy. L4-5: Relatively preserved disc height. Posteriorly there is annular bulging which appears similar to previous 2019 study. No large disc herniation. Central canal dimensions are lower normal. No significant facet arthropathy at this level. No significant foraminal stenosis. L5-S1: This level exhibits chronic disc space narrowing, slightly further progressed from previous. There is some increased signal in the central aspect of the disc-nucleus pulposis but no evidence of osteomyelitis. There is Modic type 2 sub endplate fatty marrow changes on both sides the disc space, more so than previous. Posteriorly there is a central disc protrusion again noted, slightly larger than previous. This extends posteriorly 7 mm and extends caudally for a distance of 8 mm from the disc space appearing subligamentous. It slightly indents the anterior thecal sac. The central canal dimensions, however, are lower normal. Facet joints appear unremarkable. There is bilateral foraminal stenosis evident at this level. The amount of from a stenosis bilaterally is unchanged from the 2019 study and is again noted to be more severe on the right side more moderate on the left side. This is mostly related to the vertical height loss of the disc space; less so related to the facet joints which appear unremarkable both sides at this level. Soft tissues: paraspinal soft tissues appear unremarkable. IMPRESSION: 1. Multilevel findings as described per individual level above. 2. When compared to the MRI scan of October 2019 the size of the central subligamentous disc herniation at the L3-4 level has decreased. However, the size of the L5-S1 disc herniation has slightly further increased. There is significant bilateral vertical foraminal stenosis at L5-S1 level again noted, a gain noted be slightly more prominent on the right side. There is no foraminal stenosis at the other levels. 3. Small disc herniation at T11-T12 level is again noted, similar to previous. 4. There is no significant facet arthropathy in the lumbosacral spinal column. DATA REPOSITORY:
== END 2025-01-27 02:40 ==
LOC: DI 02:20
PROVIDERS: PCP Nurse Practitioner Family; Visit Provider Nurse Practitioner Family
DX: M54.50 Low back pain, unspecified (principal); G89.29 Other chronic pain; M47.816 Spondylosis without myelopathy or radiculopathy, lumbar region
CPT/HCPCS: 72148